=== PATIENT | female | born 1960 | race Caucasian/White ===

== ENCOUNTER → 2016-03-10 | Outpatient (CLI) | payer BC ==
[~2016-03-10] MED LIST: ESTR0.5T3 PO; MULT-506 PO; NITR-5 PO; PRLSR20 PO; TRIA37.5 PO
[2016-03-11 12:38] LABS: URINE APPEARANCE CLEAR (CLEAR); URINE BILIRUBIN NEG (NEG); URINE COLOR YELLOW; URINE NITRITE NEG (NEG); URINE SPECIFIC GRAVITY 1.005 (1.000-1.030); UROBILINOGEN NEG (NEG)
[2016-03-11 12:53] LABS: MANUAL MICROSCOPIC REQUIRED? NO; REVIEW REQ? NO
== END | disposition home or self-care (01) ==
LOC: C.PAPS 10:58 → C.LABSPEC 11:28
PROVIDERS: ATTEND Internal Medicine Pulmonary Disease
DX: R39.9 Unspecified symptoms and signs involving the genitourinary system (principal)

== ENCOUNTER → 2016-05-27 | Outpatient (CLI) | payer BC ==
[2016-05-27 12:29] LABS: BLOOD UREA NITROGEN 17 mg/dl (7-18); BUN/CREATININE RATIO 21.9 (10-20); CALCIUM 9.2 mg/dl (8.5-10.1); CARBON DIOXIDE 30 mmol/L (21-32); CHLORIDE 106 mmol/L (98-107); CREATININE 0.79 mg/dl (0.60-1.20); GLUCOSE 82 mg/dl (70-99); POTASSIUM 3.8 mmol/L (3.5-5.1); SODIUM 141 mmol/L (136-145)
[2016-05-27 12:32] LABS: CHOLESTEROL 220 mg/dl (0-200); CHOLESTEROL/HDL RATIO 2.2; HDL CHOLESTEROL 98 mg/dl; LDL CHOLESTEROL CALCULATED 107 mg/dl; TRIGLYCERIDES 75 mg/dl (0-150); VERY LOW DENSITY LIPOPROT CALC 15 mg/dl
== END | disposition home or self-care (01) ==
LOC: C.LABPBG 08:22
PROVIDERS: ATTEND Family Medicine
DX: Z00.00 Encounter for general adult medical examination without abnormal findings (principal); Z11.59 Encounter for screening for other viral diseases; I10 Essential (primary) hypertension; Z13.220 Encounter for screening for lipoid disorders

== ENCOUNTER → 2016-07-27 | Day surgery (SDC) | payer BC ==
[2016-07-13 11:46] VITALS: Ht 161.3 cm; Wt 65.9 kg
[~2016-07-27] VITALS: Ht 161.3 cm; Wt 65.9 kg
[~2016-07-27] MED LIST changes: +MIDAZOLAM HCL 1 MG/ML 2ML VIAL ONE; -NITR-5 PO; +PROPOFOL IV EMULSION 10 MG/ML 20 ML VIAL IV ONE; +SODIUM CHLORIDE 0.9% 500ML 500 ML IV ONE
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
--- NOTE | 2016-07-27 11:48 | GI REPORT ---
Procedure Date: 07/27/2016 11:04 AM Procedure: Colonoscopy Indications: Screening for colorectal malignant neoplasm Medicines: Monitored Anesthesia Care Complications: No immediate complications. Estimated Blood Loss: Estimated blood loss: none. Procedure: Pre-Anesthesia Assessment: - Prior to the procedure, a History and Physical was performed, and patient medications and allergies were reviewed. The patient's tolerance of previous anesthesia was also reviewed. The risks and benefits of the procedure and the sedation options and risks were discussed with the patient. All questions were answered, and informed consent was obtained. Prior Anticoagulants: The patient has taken no previous anticoagulant or antiplatelet agents. ASA Grade Assessment: II - A patient with mild systemic disease. After reviewing the risks and benefits, the patient was deemed in satisfactory condition to undergo the procedure. After I obtained informed consent, the scope was passed under direct vision. Throughout the procedure, the patient's blood pressure, pulse, and oxygen saturations were monitored continuously. The scope was introduced through the anus and advanced to the terminal ileum. The colonoscopy was performed without difficulty. The patient tolerated the procedure well. The quality of the bowel preparation was good. The terminal ileum, ileocecal valve, appendiceal orifice, and rectum were photographed. Findings: A 5 mm polyp was found in the transverse colon. The polyp was sessile. The polyp was removed with a hot snare. Resection and retrieval were complete. Non-bleeding internal hemorrhoids were found during retroflexion. The hemorrhoids were small. Impression: - One 5 mm polyp in the transverse colon, removed with a hot snare. Resected and retrieved. - Non-bleeding internal hemorrhoids. Recommendation: - Resume previous diet. - Continue present medications. - Repeat colonoscopy for surveillance based on pathology results. - Return to primary care physician as previously scheduled. Matthew Rodriguez DO 07/27/2016 11:48:38 AM This report has been signed electronically. Note Initiated On: 07/27/2016 11:04 AM I attest to the content of the Intraoperative Record and orders documented therein, exceptions below
--- NOTE | 2016-07-27 11:52 | Discharge Instructions ---
Endoscopy Patient Instructions Date / Procedure(s) Performed Jul 27, 2016. Colonoscopy Allergy Information Coded Allergies: No Known Allergies (Verified , 07/13/16) Discharge Date / Findings Jul 27, 2016. Colon polyp Internal hemorrhoids Medication Instructions OK to resume all medications today as prescribed Medications Dose Route/Sig Max Daily Dose Days Date Category Multivitamin (Multivitamins) Tab 1 Tab PO QAM 07/13/16 Reported Dyazide 37.5MG/25MG (Triamterene/HCTZ) Cap 1 Tab PO QAM 07/13/16 Reported Prilosec (Omeprazole) 20 Mg Capcr 40 Mg PO QAM 07/13/16 Reported Estradiol 0.5 Mg Tab 1 Tab PO QAM 07/13/16 Reported Provider Instructions Activity Restrictions - No exercising or heavy lifting for 24 hours. - Do not drink alcohol the day of the procedure. - Do not drive a car or operate machinery until the day after the procedure. - Do not make any important decisions or sign important papers in 24 hours after the procedure. Following Day: - Return to full activity which may include returning to work/school. Diet Start your diet with liquids and light foods (jello, soup, juice, toast). Then eat your usual diet if not nauseated. Treatment For Common After Affects For mild abdominal pain, bloating, or excessive gas: - Rest - Eat lightly - Lie on right side Follow-Up Information Follow-up with Pili Andrews as scheduled Anesthesia Information What You Should Know You have had a procedure that required some medicine to reduce anxiety and discomfort. This treatment is called moderate sedation. After receiving the treatment, you may be sleepy, but you will be able to breathe on your own. The effects of the treatment may last for several hours. Follow these instructions along with Activity/Diet recommendations noted above: * Do NOT do anything where dizziness or clumsiness would be dangerous. * Rest quietly at home today, then you can be up and about tomorrow. * Have a responsible person stay with you the rest of today. * You may have had an I.V. today. If so, you may take the dressing off later today. Recommendations Call your doctor if: * Trouble breathing * Continuous vomiting for more than 24 hours * Temperature above 101 degrees * Severe abdominal pain or bloating * Pain not relieved by pain medicine ordered * There is increased drainage or redness from any incision * A large amount of rectal bleeding greater than 2-3 tablespoons. (If you had a polyp/s removed or have hemorrhoids, a small amount of blood - from the rectum is to be expected.) * You have any unanswered questions or concerns. IN THE EVENT OF A SERIOUS EMERGENCY, GO TO THE NEAREST EMERGENCY ROOM Your discharge instructions were prepared by provider Matthew Rodriguez. Patient Instructions Signature Page Serenity Levi Patient (or Guardian) Signature/Date: I have read and understand the instructions given to me by my caregivers. Caregiver/RN/Doctor Signature/Date: The above-named patient and/or guardian has received patient instructions on this date. + Original Patient Signature Page (only) stays with chart. Please make copy for patient.
[2016-07-27 12:17] VITALS: BP 113/85; PULSE 66; O2SAT 98
--- NOTE | 2016-07-27 12:31 | Anesthesiology Progress Note ---
Anesthesia Post Op Note Date & Time Jul 27, 2016 at 12:31 Vital Signs Pain Intensity: 0 Vital Signs Past 12 Hours Date Time Temp Pulse Resp B/P (MAP) Pulse Ox O2 Delivery O2 Flow Rate FiO2 07/27/16 12:17 66 20 113/85 98 Room Air 07/27/16 11:56 80 20 112/78 96 Room Air 07/27/16 11:41 80 16 102/78 96 Room Air 07/27/16 10:33 36.6 65 16 132/89 97 Room Air Notes Mental Status: alert / awake / arousable, participated in evaluation Pt Amnestic to Procedure: Yes Nausea / Vomiting: adequately controlled Pain: adequately controlled Airway Patency, RR, SpO2: stable & adequate BP & HR: stable & adequate Hydration State: stable & adequate Anesthetic Complications: no major complications apparent
== END | disposition home or self-care (01) ==
LOC: C.GI 10:10
PROVIDERS: ATTEND Internal Medicine
DX: Z12.11 Encounter for screening for malignant neoplasm of colon (principal); D12.3 Benign neoplasm of transverse colon; K64.8 Other hemorrhoids; I10 Essential (primary) hypertension; Z90.711 Acquired absence of uterus with remaining cervical stump; Z98.890 Other specified postprocedural states; Z68.25 Body mass index [BMI] 25.0-25.9, adult

== ENCOUNTER → 2017-02-11 | Outpatient (CLI) | payer BC ==
[~2017-02-11] MED LIST changes: -MIDAZOLAM HCL 1 MG/ML 2ML VIAL ONE; -PROPOFOL IV EMULSION 10 MG/ML 20 ML VIAL IV ONE; -SODIUM CHLORIDE 0.9% 500ML 500 ML IV ONE
--- NOTE | 2017-02-15 15:28 | MAMMOGRAPHY REPORT ---
BILATERAL DIGITAL SCREENING MAMMOGRAM TOMOSYNTHESIS WITH CAD: 02/11/2017 CLINICAL HISTORY: Routine screening. Patient has no complaints. TECHNIQUE: Breast tomosynthesis in addition to standard 2D mammography was performed. Current study was also evaluated with a Computer Aided Detection (CAD) system. COMPARISON: Comparison is made to exams dated: 02/11/2016 mammogram, 08/09/2014 mammogram, 07/30/2014 m ammogram - [facility] BREAST COMPOSITION: The tissue of both breasts is heterogeneously dense, which may obscure small mas ses. FINDINGS: No suspicious masses, calcifications, or areas of architectural distortion are noted in ei ther breast. There has been no significant interval change compared to prior exams. IMPRESSION: ACR BI-RADS CATEGORY 1: NEGATIVE There is no mammographic evidence of malignancy. A 1 year screening mammogram is recommended. The pa tient will receive written notification of the results. Approximately 10% of breast cancers are not detected with mammography. A negative mammographic report should not delay biopsy if a clinically suggestive mass is present. Radha Verde M.D. ah/:02/11/2017 16:33:12 Ward Service Supervisor: Dulce Mckeon RT(R)(M)(BD), [facility] letter sent: Normal 1/2 BI-RADS Code: ACR BI-RADS Category 1: Negative
== END | disposition home or self-care (01) ==
LOC: C.MAMM 10:19
PROVIDERS: ATTEND Family Medicine
DX: Z12.31 Encounter for screening mammogram for malignant neoplasm of breast (principal)

== ENCOUNTER 2021-11-21 22:32 | Observation (INO) ==
[2021-11-21] MEDS ORDERED: ONDANSETRON INJ 2 MG/ML 2 ML VIAL IV STA (22:53)
[2021-11-21] MEDS ORDERED: KETOROLAC TROMETHAMINE 15 MG/ML VIAL IV ONE (22:53)
[2021-11-21] MEDS ORDERED: SODIUM CHLORIDE 0.9% 1000ML 1,000 ML IV SCH (22:53)
--- NOTE | 2021-11-21 23:08 | Emergency Department Note ---
Impression & Plan Acute cholecystitis, Cholelithiasis, Abdominal pain, RUQ ED Provider Note CHIEF COMPLAINT: RUQ abdominal pain HISTORY OF PRESENT ILLNESS: Serenity Warner is a 61 year old female with history of HTN and GERD who presents to the Emergency Department for evaluation of aching pains to her right upper abdominal quadrant radiating around to her right flank which have been persistent over the past 2 days. Initially, the patient states that her pain first began after she had eaten wings. Since then, her pain has persisted. Currently, she rates her discomfort as a 8/10 which worsens when laying down. She has taken ibuprofen and muscle relaxants without improvement of her symptoms. She does state that her pain seems to improve a bit when she is standing up. The patient states that she had similar pains about a month ago but they resolved on their own and she was feeling well until they returned 2 days ago. She has felt nauseous but no vomiting. No diarrhea, hematochezia or melena. No dysuria or hematuria. She does state that she has felt chilled but no fevers. The patient otherwise denies chest pain or respiratory difficulties. No other acute complaints. The patient has had a hysterectomy, no other abdominal surgeries. REVIEW OF SYSTEMS: 10 systems were reviewed and were negative unless otherwise stated in HPI as above PHYSICAL EXAM: VITALS: Vitals are noted on the nurse's note and reviewed by myself. Initially hypertensive and tachycardic. Additional vital signs stable. General: Resting in bed, no acute distress HEENT: Normocephalic, PERRL, EOMI, mucous membranes moist, oropharynx clear Neck: Supple, no lymphadenopathy, non-tender, ROM intact without pain Resp: Good inspiratory effort on room air, lung sounds clear bilaterally CV: Mildly tachycardic rate, regular rhythm, normal S1-S2, peripheral pulses palpated Back: Mild tenderness to palpation and percussion over the right flank, left flank non-tender Abd: Soft, non-distended, tender to palpation over the right upper quadrant and epigastric region, no rebound, guarding or rigidity MSK: Moving all extremities without apparent pain or difficulty Integumentary: Warm, dry, no appreciable rash Neuro: Awake, alert and oriented x 3, interacting and answering questions appropriately Differential diagnosis includes etiologies such as appendicitis, diverticulitis, obstruction, inflammatory bowel disease, renal colic, PUD, biliary pathology, pancreatitis, mesenteric ischemia, aortic pathology, infections, genitourinary, UTI, perforated viscus, as well as others were entertained. EMERGENCY DEPARTMENT COURSE: Physical exam and history were performed. Nursing triage notes, EMR, and medication list were personally reviewed. Patient appears to have aching pains to her right upper abdominal quadrant radiating around to her right flank which have been persistent over the past 2 days. Additional history as described above. See physical exam as noted above. The patient was offered pain medication. IV access was established and she was given Toradol 15 mg x 2, Zofran 4 mg and 1 L NSS throughout her emergency department course. Labs were obtained, reviewed by myself as below. Of note, no concern for leukocytosis with a WBC of 8.33. No concern for anemia with hemoglobin 13.5. Electrolytes WNL. Renal indices stable. LFTs WNL. Lipase WNL. High- sensitivity troponin I not elevated at 4.0. Coagulation studies WNL. Urinalysis not concerning for infection or other concerning findings. CAT scan of the abdomen/pelvis was obtained, reviewed by radiologist and myself as below. Imaging did show cholelithiasis with evidence of acute cholecystitis. Upon reevaluation, the patient was doing well and stated that she felt improved after receiving the medication as above. I did discuss the results of the above findings with her at bedside. I then contacted Manfred Snyder PA-C of general surgery. He agreed to evaluate the patient with Dr. Mtz for ongoing management. Please see his dictation for additional plan and disposition thereafter. The patient verbalized her understanding and agreement with the treatment plan as above. The chart was completed utilizing [employer] Speech Voice Recognition Software. Grammatical errors, random word insertions, pronoun errors, and incomplete sentences are an occasional consequence of this system due to software limitations, ambient noise, and hardware issues. Any formal questions or concerns about the content, text, or information contained within the body of this dictation should be directly addressed to the provider for clarification. Past Med/Surg History Medical History Cervical radiculopathy Controlled substance agreement broken Diverticulosis Heartburn Hypertension Sciatica of left side Sinus congestion Surgical History H/O: hysterectomy (2004) total hysterectomy with removal of right ovary Family History Brother Diabetes Hypertension History of kidney cancer Grandmother (Maternal) Diabetes Mother Hypertension Father Hypertension Uncle Myocardial infarction Sister Pulmonary fibrosis Daughter No problems noted. Son No problems noted. 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 Feels Safe at Home: Yes Childhood Exposure to Second-Hand Smoke: Yes Dental Care, Regularly: Yes Physical Activity Frequency: Does not Exercise Seatbelt Use: always Sunscreen Use: Yes Allergies Allergies Allergy/AdvReac Type Severity Reaction Status Date / Time No Known Drug Allergies Allergy NKDA Verified 11/22/21 00:32 Home Meds Home Medications Medication Instructions Recorded Confirmed estradiol 0.5 mg tablet 5 mg PO DAILY 11/22/21 11/22/21 ibuprofen 200 mg tablet 600 mg PO Q8 PRN Pain 11/22/21 11/22/21 triamterene 37.5 1 cap PO DAILY 11/22/21 11/22/21 mg-hydrochlorothiazide 25 mg capsule valacyclovir 500 mg tablet 500 mg PO DAILY PRN ... 11/22/21 11/22/21 Previous Rx's Medication Instructions Recorded cyclobenzaprine 10 mg tablet 10 mg PO TID PRN muscle spasm #20 11/16/21 tabs omeprazole 40 mg capsule,delayed 40 mg PO QAM #30 caps 11/18/21 release Results & Data (ED) Vital Signs Vital Signs - 24 hr 11/21/21 22:33 11/22/21 02:08 Temperature 36.7 C Temperature Source Temporal Artery Scan Pulse Rate 104 H Pulse Rate [Left Finger] 64 Pulse Rhythm Regular Pulse Strength Normal Respiratory Rate 18 20 Respiratory Effort / Characteristics Non-Labored Spontaneous Non-Labored Spontaneous Respiratory Depth Normal Normal Blood Pressure 173/101 H Blood Pressure [Left Arm] 151/96 H Blood Pressure Mean 125 Blood Pressure Mean [Left Arm] 114 Blood Pressure Position Sitting Pulse Oximetry 98 Oxygen Delivery Method Room Air Sepsis Recent Fever Within 48 Hours No Sepsis New/Unexplained Change in Mental Status N/A Sepsis Action Taken by Nursing No Action Required Laboratory Data Result diagrams: 11/21/21 22:50 11/21/21 22:50 Lab Results 11/21/21 11/21/21 11/21/21 Range/Units 22:50 22:50 22:50 WBC 8.33 (4.8-10.8) K/ul RBC 3.95 (3.93-5.22) M/uL Hgb 13.5 (12.0-16.0) g/dl Hct 39.8 (34.1-44.9) % MCV 100.8 H (80.0-100.0) fL MCH 34.2 H (25.0-34.0) pg MCHC 33.9 (32.0-36.0) g/dL RDW Std Deviation 49.1 H (36.4-46.3) fL RDW Coeff of [place] 13.1 (11.5-14.5) % Plt Count 322 (130-400) K/uL MPV 9.7 (9.4-12.3) fL Immature Gran % (Auto) 0.1 % Neut % (Auto) 46.5 % Lymph % (Auto) 42.5 % [place] % (Auto) 7.8 % Eos % (Auto) 2.5 % Baso % (Auto) 0.6 % Neut # (Auto) 3.87 (1.4-6.5) K/uL Lymph # (Auto) 3.54 H (1.2-3.4) K/uL [place] # (Auto) 0.65 (0.24-0.82) K/uL Eos # (Auto) 0.21 (0-0.50) K/uL Baso # (Auto) 0.05 (0-0.2) K/uL Immature Gran # (Auto) 0.01 (0.00-0.02) K/uL PT 10.2 (9.0-12.0) Seconds INR 1.0 (0.9-1.1) APTT 24.2 (21.0-31.0) Seconds PTT Ratio 0.9 Sodium 138 (136-145) mmol/L Potassium 3.6 (3.5-5.1) mmol/L Chloride 102 (98-107) mmol/L Carbon Dioxide 28 (21-32) mmol/L Anion Gap 8 (3-11) BUN 13 (6-23) mg/dl Creatinine 0.72 (0.6-1.2) mg/dl Est Cr Clr Drug Dosing 78.6 ml/min Est GFR ( Amer) 105.5 ml/min Est GFR (Non-Af Amer) 91.0 ml/min BUN/Creatinine Ratio 18.1 (10-20) Glucose 94 (70-99(Fasting)) mg/dl Calcium 9.3 (8.5-10.1) mg/dl Total Bilirubin 0.3 (0.2-1.0) mg/dl AST 30 (13-39) U/L ALT 51 (7-52) U/L Alkaline Phosphatase 86 (34-104) U/L Troponin I High Sens 4.0 (0-14) pg/ml Total Protein 6.7 (6.0-8.3) gm/dl Albumin 4.1 (3.4-5.0) gm/dl Globulin 2.6 (2.5-4.0) gm/dl Albumin/Globulin Ratio 1.6 (0.9-2) Lipase 27 (11-82) U/L Urine Color Urine Appearance (Clear) Urine pH (4.5-7.5) Ur Specific [place] (1.000-1.030) Urine Protein (Negative) Urine Glucose (UA) (Negative) Urine Ketones (Negative) Urine Blood (Negative) Urine Nitrite (Negative) Urine Bilirubin (Negative) Urine Urobilinogen (Negative) Ur Leukocyte Esterase (Negative) SARS-CoV-2, RNA, NAAT (NEGATIVE) 11/21/21 11/22/21 Range/Units 22:50 Unknown WBC (4.8-10.8) K/ul RBC (3.93-5.22) M/uL Hgb (12.0-16.0) g/dl Hct (34.1-44.9) % MCV (80.0-100.0) fL MCH (25.0-34.0) pg MCHC (32.0-36.0) g/dL RDW Std Deviation (36.4-46.3) fL RDW Coeff of [place] (11.5-14.5) % Plt Count (130-400) K/uL MPV (9.4-12.3) fL Immature Gran % (Auto) % Neut % (Auto) % Lymph % (Auto) % [place] % (Auto) % Eos % (Auto) % Baso % (Auto) % Neut # (Auto) (1.4-6.5) K/uL Lymph # (Auto) (1.2-3.4) K/uL [place] # (Auto) (0.24-0.82) K/uL Eos # (Auto) (0-0.50) K/uL Baso # (Auto) (0-0.2) K/uL Immature Gran # (Auto) (0.00-0.02) K/uL PT (9.0-12.0) Seconds INR (0.9-1.1) APTT (21.0-31.0) Seconds PTT Ratio Sodium (136-145) mmol/L Potassium (3.5-5.1) mmol/L Chloride (98-107) mmol/L Carbon Dioxide (21-32) mmol/L Anion Gap (3-11) BUN (6-23) mg/dl Creatinine (0.6-1.2) mg/dl Est Cr Clr Drug Dosing ml/min Est GFR ( Amer) ml/min Est GFR (Non-Af Amer) ml/min BUN/Creatinine Ratio (10-20) Glucose (70-99(Fasting)) mg/dl Calcium (8.5-10.1) mg/dl Total Bilirubin (0.2-1.0) mg/dl AST (13-39) U/L ALT (7-52) U/L Alkaline Phosphatase (34-104) U/L Troponin I High Sens (0-14) pg/ml Total Protein (6.0-8.3) gm/dl Albumin (3.4-5.0) gm/dl Globulin (2.5-4.0) gm/dl Albumin/Globulin Ratio (0.9-2) Lipase (11-82) U/L Urine Color Yellow Urine Appearance Clear (Clear) Urine pH 7.0 (4.5-7.5) Ur Specific [place] 1.006 (1.000-1.030) Urine Protein Negative (Negative) Urine Glucose (UA) Negative (Negative) Urine Ketones Negative (Negative) Urine Blood Negative (Negative) Urine Nitrite Negative (Negative) Urine Bilirubin Negative (Negative) Urine Urobilinogen Negative (Negative) Ur Leukocyte Esterase Negative (Negative) SARS-CoV-2, RNA, NAAT NEGATIVE (NEGATIVE) Administered Medications Lactated Ringer's (Lr) 1,000 mls @ 100 mls/hr IV .Q10H MIGUE Stop: 12/22/21 00:59 Last Admin: 11/22/21 01:22 Dose: 100 mls/hr Documented By: ALKA Discontinued Medications Sodium Chloride (Nss 1000ml) 1,000 mls @ 999 mls/hr IV .Q1H1M MIGUE Stop: 11/21/21 23:53 Last Infusion: 11/21/21 23:53 Dose: 0 mls/hr Documented By: Admin: 11/21/21 22:58 Dose: 999 mls/hr Documented By: ALKA Cefoxitin Sodium (Mefoxin) 2,000 mg in 60 mls @ 100 mls/hr IV NOW STA Stop: 11/22/21 01:27 Last Infusion: 11/22/21 02:08 Dose: 0 mls/hr Documented By: Admin: 11/22/21 01:22 Dose: 100 mls/hr Documented By: ALKA Ioversol (Ioversol 350 Mg 100ml Prefilled Syringe) 94 ml IV ONCE ONE Stop: 11/22/21 00:08 Last Admin: 11/22/21 00:08 Dose: 94 ml Documented By: JOHN Ketorolac Tromethamine (Ketorolac Tromethamine 15 Mg/Ml Vial) 15 mg IV NOW ONE Stop: 11/21/21 22:54 Last Admin: 11/21/21 22:59 Dose: 15 mg Documented By: ALKA Ketorolac Tromethamine (Ketorolac Tromethamine 15 Mg/Ml Vial) 15 mg IV NOW ONE Stop: 11/22/21 00:35 Last Admin: 11/22/21 00:50 Dose: 15 mg Documented By: ALKA Ondansetron HCl (Ondansetron Inj 2 Mg/Ml 2 Ml Vial) 4 mg IV NOW STA Stop: 11/21/21 22:54 Last Admin: 11/21/21 22:59 Dose: 4 mg Documented By: ALKA Imaging Data Radiologist's Impression: Abdomen/Pelvis CT 11/21/21 22:54 CT SCAN OF THE ABDOMEN AND PELVIS WITH IV CONTRAST CLINICAL HISTORY: Right upper quadrant abdominal pain. COMPARISON STUDY: Abdominal CT dated 12/14/2007. TECHNIQUE: Following the IV administration of 94 cc of Optiray 350, CT scan of the abdomen and pelvis is performed from the lung bases to the proximal femora. Images are reviewed in the axial, sagittal, and coronal planes. IV contrast was administered without complication. A dose lowering technique was utilized adhering to the principles of ALARA. CT DOSE: 398.92 mGy.cm FINDINGS: Lung bases: The heart is normal in size and without pericardial effusion. The l mayuri bases are clear noting dependent atelectasis. Liver: The contrast-enhanced liver is normal in size, contour, and attenuation. There is no intrahepatic biliary ductal dilatation. The hepatic veins and portal veins are patent. A 1.7 cm right lobe hypodensity on image #95 is incompletely characterized and likely represents a hemangioma. This is unchanged dating back to 2007. Gallbladder: Gallbladder is distended and there are large gallstones. Gallstones are seen in the region of the gallbladder neck on image #134. The gallbladder wall is mildly thickened there is mild pericholecystic infiltration. Spleen: Normal in size and attenuation. Pancreas: Unremarkable. Adrenal glands: Unremarkable. Kidneys: The contrast enhanced kidneys are normal in size and without hydronephrosis. The kidneys enhance symmetrically. Renal sinus cysts are noted on the left. Abdominal vasculature: The abdominal aorta is normal in course and caliber. Bowel: There is no bowel obstruction. [id number] fecal retention is seen throughout the colon. The appendix is well-visualized and normal. Peritoneum: There is no intraperitoneal free air or abdominal ascites. There is a fat-containing umbilical hernia. Lymphadenopathy: None. Pelvic viscera: The bladder is normal as visualized. The uterus is surgically absent. Simple cystic foci in the left ovary measuring up to 1.7 cm have been present dating back to 2007 and are of low suspicion. Skeletal structures: There is mild lumbosacral spondylosis. Sclerotic changes noted in the sacroiliac joints. No lytic or blastic lesions are seen. IMPRESSION: 1. Cholelithiasis with evidence of acute cholecystitis. 2. Additional findings as above. ACT 112: Negative or not required by law. Electronically signed by: Gonzales Nunes M.D. 11/22/2021 12:22 AM Discharge Plan Visit Data Chief Complaint: Abdominal Pain Stated Complaint: R SIDE ABD AND BACK PAIN ED Provider: Leobardo Cardoso ED Midlevel Provider: Myranda Mora Discharge Problem: Acute cholecystitis, Cholelithiasis, Abdominal pain, RUQ Patient Disposition: Admitted As Inpatient Discharge Instructions Interventions: ED Discharge Assessment Last Done: 11/22/21 02:16 Forms Stand Alone Forms: [facility] [employer] Prescriptions Prescriptions: No Action cyclobenzaprine 10 mg tablet 10 mg PO TID PRN (Reason: muscle spasm) Qty: 20 0RF omeprazole 40 mg capsule,delayed release(DR/EC) 40 mg PO QAM Qty: 30 5RF ibuprofen 200 mg Tablet 600 mg PO Q8 PRN (Reason: Pain) valacyclovir 500 mg tablet 500 mg PO DAILY PRN (Reason: ...) triamterene-hydrochlorothiazid 37.5-25 mg capsule 1 cap PO DAILY Rx Instructions: TAKE ONE CAPSULE BY MOUTH EVERY DAY estradiol 0.5 mg tablet 5 mg PO DAILY Rx Instructions: TAKE ONE TABLET BY MOUTH EVERY DAY Referrals Referrals: Pili Andrews MD [Primary Care Provider] -
[2021-11-21 23:12] LABS: Basophils # (auto) 0.05 K/uL (0-0.2); Basophils % (auto) 0.6 %; Eosinophils # (auto) 0.21 K/uL (0-0.50); Eosinophils % (auto) 2.5 %; Hematocrit (blood only) 39.8 % (34.1-44.9); Hemoglobin 13.5 g/dl (12.0-16.0); Immature Granulocytes # (auto) 0.01 K/uL (0.00-0.02); Immature Granulocytes % (auto) 0.1 %; Lymphocytes # (auto) 3.54 K/uL (1.2-3.4); Lymphocytes % (auto) 42.5 %; Mean Corpuscular Hemoglobin 34.2 pg (25.0-34.0); Mean Corpuscular Hgb Conc 33.9 g/dL (32.0-36.0); Mean Corpuscular Volume 100.8 fL (80.0-100.0); Mean Platelet Volume 9.7 fL (9.4-12.3); Monocytes # (auto) 0.65 K/uL (0.24-0.82); Monocytes % (auto) 7.8 %; Neutrophils # (auto) 3.87 K/uL (1.4-6.5); Neutrophils % (auto) 46.5 %; Platelet Count 322 K/uL (130-400); RDW Coefficient of Variation 13.1 % (11.5-14.5); RDW Standard Deviation 49.1 fL (36.4-46.3); Red Blood Count 3.95 M/uL (3.93-5.22); White Blood Count 8.33 K/ul (4.8-10.8)
[2021-11-21 23:20] LABS: Appearance Urine Clear (Clear); Bilirubin Urine Negative (Negative); Blood Urine Negative (Negative); Color Urine Yellow; Glucose Urine UA Negative (Negative); Ketones Urine Negative (Negative); Leukocyte Esterase Urine Negative (Negative); Nitrite Urine Negative (Negative); Protein Urine Negative (Negative); Specific Gravity Urine 1.006 (1.000-1.030); Urobilinogen Urine Negative (Negative)
[2021-11-21 23:26] LABS: Partial Thromboplastin Ratio 0.9; Partial Thromboplastin Time 24.2 Seconds (21.0-31.0); Prothrombin Time 10.2 Seconds (9.0-12.0)
[2021-11-21 23:45] LABS: Albumin Globulin Ratio 1.6 (0.9-2); Albumin Level 4.1 gm/dl (3.4-5.0); BUN Creatinine Ratio 18.1 (10-20); Bilirubin,Total 0.3 mg/dl (0.2-1.0); Calcium 9.3 mg/dl (8.5-10.1); Creatinine Clr Calc Pharmacy 78.6 ml/min; Est GFR (African American) 105.5 ml/min; Globulin 2.6 gm/dl (2.5-4.0); Potassium 3.6 mmol/L (3.5-5.1); Total Protein 6.7 gm/dl (6.0-8.3)
[2021-11-22] MEDS ORDERED: IOVERSOL 350 MG 100mL Prefilled Syringe IV ONE (00:07)
--- NOTE | 2021-11-22 00:24 | CT Scan Report ---
CT SCAN OF THE ABDOMEN AND PELVIS WITH IV CONTRAST CLINICAL HISTORY: Right upper quadrant abdominal pain. COMPARISON STUDY: Abdominal CT dated 12/14/2007. TECHNIQUE: Following the IV administration of 94 cc of Optiray 350, CT scan of the abdomen and pelvi s is performed from the lung bases to the proximal femora. Images are reviewed in the axial, sagittal , and coronal planes. IV contrast was administered without complication. A dose lowering technique wa s utilized adhering to the principles of ALARA. CT DOSE: 398.92 mGy.cm FINDINGS: Lung bases: The heart is normal in size and without pericardial effusion. The lung bases are clear no ting dependent atelectasis. Liver: The contrast-enhanced liver is normal in size, contour, and attenuation. There is no intrahepa tic biliary ductal dilatation. The hepatic veins and portal veins are patent. A 1.7 cm right lobe hyp odensity on image #95 is incompletely characterized and likely represents a hemangioma. This is uncha nged dating back to 2007. Gallbladder: Gallbladder is distended and there are large gallstones. Gallstones are seen in the nyla on of the gallbladder neck on image #134. The gallbladder wall is mildly thickened there is mild teresa cholecystic infiltration. Spleen: Normal in size and attenuation. Pancreas: Unremarkable. Adrenal glands: Unremarkable. Kidneys: The contrast enhanced kidneys are normal in size and without hydronephrosis. The kidneys enh ance symmetrically. Renal sinus cysts are noted on the left. Abdominal vasculature: The abdominal aorta is normal in course and caliber. Bowel: There is no bowel obstruction. [id number] fecal retention is seen throughout the colon. The appendix is well-visualized and normal. Peritoneum: There is no intraperitoneal free air or abdominal ascites. There is a fat-containing umbi lical hernia. Lymphadenopathy: None. Pelvic viscera: The bladder is normal as visualized. The uterus is surgically absent. Simple cystic f oci in the left ovary measuring up to 1.7 cm have been present dating back to 2007 and are of low angela picion. Skeletal structures: There is mild lumbosacral spondylosis. Sclerotic changes noted in the sacroiliac joints. No lytic or blastic lesions are seen. IMPRESSION: 1. Cholelithiasis with evidence of acute cholecystitis. 2. Additional findings as above. ACT 112: Negative or not required by law. Electronically signed by: Gonzales Nunes M.D. 11/22/2021 12:22 AM
[2021-11-22] MEDS ORDERED: KETOROLAC TROMETHAMINE 15 MG/ML VIAL IV ONE (00:34)
--- NOTE | 2021-11-22 00:48 | History & Physical Report ---
Date of Service November 22, 2021 Assessment & Plan (1) Cholecystitis: Plan: Due to the patient's clinical presentation, and imaging we will proceed in the following manner: Admit the patient to the hospital Provide analgesics provide antiemetics We will obtain an ultrasound of the gallbladder to further delineate her biliary anatomy Follow serial labs Implement n.p.o. status Provide IV fluid for hydration Initiate antibiotics in the form of cefoxitin We have tentatively added the patient to Dr. Mtz surgical schedule for Tuesday morning 12-12 for a cholecystectomy We will check a COVID test Additional recommendations be forthcoming based on operative findings and her postoperative recovery Will use SCDs only for DVT prevention, no chemical means due to planned surgery new The patient will be a full code, level 1 History of Present Illness Chief Complaint: Abdominal pain Primary Care Provider: Pili Andrews MD This is a 61-year-old female who presents to [facility] emergency department secondary to abdominal pain. Patient notes that she has been having on and off abdominal pain located in the right upper quadrant she says for at least 1 month. She notes that the pain usually self resolves but typically is related to eating. She notes that she did have an episode of this 2 days ago that was somewhat worse than usual but this self resolved. She notes that she had this pain again today and the pain was very severe. She denies any fevers, shakes, or chills. She did report nausea without vomiting. She notes that as the pain usually remits on its own she did not seek medical attention for this problem prior to this evening. Concerning her pain she notes that it is nonradiating. She notes that the pain is usually worse after eating but denies any other palliative or provocative factors. She does note that she has had abdominal surgery in the form of a hysterectomy before. In the emergency department the patient had labs and imaging which I independently reviewed. She did have a CT scan of the abdomen and pelvis that showed cholelithiasis with evidence of acute cholecystitis as the gallbladder appeared distended. It is nowhere the mention that one of the gallstones it was located in the region of the gallbladder neck. Mild amount of pericholecystic fluid was noted as well. Labs include a CBC were white blood cell count was normal. Her hemoglobin and hematocrit, along with her platelet count were also normal. Coagulation studies were noted to be normal. Chemistry profile showed sodium, potassium, BUN, and creatinine were normal. Her LFTs including her total bilirubin, AST, ALT, alkaline phosphatase, and lipase were nonelevated. Urinalysis was not indicative of infection. A EKG showed normal sinus rhythm without changes indicative of ischemia. A chest x-ray was performed that showed no evidence of pleural effusion or pneumonia. The patient notes that she leads a fairly active lifestyle when she is feeling well. She feels as though she could easily walk a mile on a flat surface without chest pain or shortness of breath and she can also go up a flight of steps without any chest pain. She notes that she is a lifetime non-smoker and does not have a known family history of coronary artery disease. She does report that she is treated for hypertension as well as GERD but denies any additional medical problems. In the emergency department the patient was treated with some intravenous fluids along with Zofran and Toradol and her pain had improved but she continues to have some pain in the right upper quadrant. At the time of my interview she was resting in bed in no distress. Allergies Allergy/AdvReac Type Severity Reaction Status Date / Time No Known Drug Allergies Allergy NKDA Verified 11/22/21 00:32 Home Medications Medication Instructions Recorded Confirmed Type cyclobenzaprine 10 mg tablet 10 mg PO TID PRN muscle spasm #20 11/16/21 11/22/21 Rx tabs omeprazole 40 mg capsule,delayed 40 mg PO QAM #30 caps 11/18/21 11/22/21 Rx release acetaminophen 325 mg capsule 650 mg PO Q6H PRN fever or pain 11/22/21 Rx #30 caps estradiol 0.5 mg tablet 5 mg PO DAILY 11/22/21 11/22/21 History ibuprofen 200 mg capsule 400 mg PO Q8H PRN pain #30 caps 11/22/21 Rx ibuprofen 200 mg tablet 600 mg PO Q8 PRN Pain 11/22/21 11/22/21 History oxycodone 5 mg tablet 5 mg PO Q6H PRN pain #10 tabs 11/22/21 Rx triamterene 37.5 1 cap PO DAILY 11/22/21 11/22/21 History mg-hydrochlorothiazide 25 mg capsule valacyclovir 500 mg tablet 500 mg PO DAILY PRN ... 11/22/21 11/22/21 History Past Med/Surg History Medical History Cervical radiculopathy Controlled substance agreement broken Diverticulosis Heartburn Hypertension Sciatica of left side Sinus congestion Surgical History H/O: hysterectomy (2004) total hysterectomy with removal of right ovary Family History Brother Diabetes Hypertension History of kidney cancer Grandmother (Maternal) Diabetes Mother Hypertension Father Hypertension Uncle Myocardial infarction Sister Pulmonary fibrosis Daughter No problems noted. Son No problems noted. Denies family history of Colon cancer Ovarian cancer Prostate cancer Breast cancer Social History Smoking Status: Never smoker Second Hand Exposure: No; Hx Alcohol Use: Yes Alcohol type: wine Alcohol Intake Frequency: Monthly or Less Hx Substance Use: No Preferred Language: Northern Irish Communication Ability: Effective Visual Impairment: No Limitations Hearing Ability: Normal Parallel Computing Software Engineer Required: No Beliefs That Will Affect Care: None Current Living Situation: Significant Other Current Living Situation Comment: lives with kimberley in apt current occupational status: employed 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 [employer] Other Information That Helps Us Care for You: No Feels Safe at Home: Yes Safety Concerns: Feels Safe At This Time Childhood Exposure to Second-Hand Smoke: Yes Dental Care, Regularly: Yes Physical Activity Frequency: Does not Exercise Seatbelt Use: always Sunscreen Use: Yes Assistive Devices: None Review of Systems Constitutional: no fever and no chills Eyes: no eye pain Ear, Nose, Mouth, Throat: no ear pain Respiratory: no cough and no dyspnea Cardiovascular: no chest pain Gastrointestinal: as per Subjective / HPI, + abdominal pain and + nausea; no vomiting Genitourinary: no dysuria Musculoskeletal: no back pain Integumentary: no rash Neurologic: no localized weakness Physical Exam Constitutional: WD/WN, vitals as above Eyes: + anicteric sclerae ENMT: Ears: no hearing impairment and no external ear abnormality Mouth: no oropharynx abnormality Neck: trachea midline Respiratory: normal respiratory effort; no respiratory distress and no labored breathing Cardiovascular: Rate/Rhythm: regular rate and regular rhythm Vessels: dorsalis pedis pulses present Gastrointestinal (Abdomen): Abdomen is soft, nonrigid, and nondistended. Patient did have tenderness with palpation in the right upper quadrant with a positive Coffey sign. Musculoskeletal: No calf tenderness Skin: no rashes Neurologic: moves all extremities Psychiatric: A+Ox3, euthymic affect Results & Data Results & Data ([facility]) Vital Signs (Past 12 Hours) Vital Signs Temp Pulse Resp BP Pulse Ox O2 Del Method 11/21/21 22:33 36.7 C 104 H 18 173/101 H 98 Room Air Supervising Physician Co-Signing Physician Notes Patient seen and examined, labs and imaging reviewed, agree with above. 61-year-old female presented with right upper quadrant abdominal pain. History of some postprandial indigestion and discomfort in the past. On exam she is afebrile stable vitals. Tender to palpation in the right upper quadrant. CT personally reviewed and interpreted by myself and agree with the assessment of findings of cholelithiasis with acute cholecystitis. Ultrasound showed no biliary ductal dilatation. WBC mildly elevated, LFTs normal. 61year old female with cholelithiasis and acute cholecystitis plan for laparoscopic cholecystectomy with possible cholangiogram risks discussed to include but not limited to bleeding, infection, retained stone, bile leak, open surgery, damage to surrounding structures including bile duct, need for future or more extensive surgery, failure to treat symptoms, and risks of anesthesia. Potential discharge this afternoon PG Care Time/CCT Total # of Minutes Spent Total Time Spent with Patient: Total time spent is greater than 50% in coordination of care (as documented) at patient's floor/unit and/or counseling patient: Coding Level of Care Code 99582 Initial Inpt Care Lvl 3 Diagnoses Cholecystitis K81.9
[2021-11-22] MEDS ORDERED: cefOXitin 2,000 MG/60 ML BAG IV STA (00:52)
[2021-11-22] MEDS ORDERED: ACETAMINOPHEN 1,000 MG/100 ML VIAL IV PRN (00:52)
[2021-11-22] MEDS ORDERED: ONDANSETRON INJ 2 MG/ML 2 ML VIAL IV PRN ×2 (00:52→11:10)
[2021-11-22] MEDS: LACTATED RINGER'S 1,000 ML IV SCH ×2 (01:22→16:50)
[2021-11-22] MEDS: MoRPHine SULFATE 4 MG/ML 1 ML CARP\\VIAL IV PRN ×2 (03:19→06:21)
[2021-11-22 05:36] LABS: Basophils # (auto) 0.06 K/uL (0-0.2); Basophils % (auto) 0.5 %; Eosinophils # (auto) 0.19 K/uL (0-0.50); Eosinophils % (auto) 1.6 %; Hematocrit (blood only) 37.3 % (34.1-44.9); Hemoglobin 12.6 g/dl (12.0-16.0); Immature Granulocytes # (auto) 0.05 K/uL (0.00-0.02); Immature Granulocytes % (auto) 0.4 %; Lymphocytes # (auto) 1.85 K/uL (1.2-3.4); Lymphocytes % (auto) 15.6 %; Mean Corpuscular Hemoglobin 33.6 pg (25.0-34.0); Mean Corpuscular Hgb Conc 33.8 g/dL (32.0-36.0); Mean Corpuscular Volume 99.5 fL (80.0-100.0); Mean Platelet Volume 9.7 fL (9.4-12.3); Monocytes # (auto) 0.77 K/uL (0.24-0.82); Monocytes % (auto) 6.5 %; Neutrophils # (auto) 8.97 K/uL (1.4-6.5); Neutrophils % (auto) 75.4 %; Platelet Count 288 K/uL (130-400); RDW Standard Deviation 47.8 fL (36.4-46.3); Red Blood Count 3.75 M/uL (3.93-5.22); White Blood Count 11.89 K/ul (4.8-10.8)
[2021-11-22 05:56] LABS: Albumin Globulin Ratio 1.8 (0.9-2); Albumin Level 3.6 gm/dl (3.4-5.0); BUN Creatinine Ratio 19.4 (10-20); Bilirubin,Total 0.3 mg/dl (0.2-1.0); Calcium 8.5 mg/dl (8.5-10.1); Creatinine Clr Calc Pharmacy 84.5 ml/min; Est GFR (African American) 110.7 ml/min; Est GFR (Non-African American) 95.5 ml/min; Potassium 3.5 mmol/L (3.5-5.1); Total Protein 5.6 gm/dl (6.0-8.3)
[2021-11-22] MEDS ORDERED: BUPIVACAINE 0.5 % 5 MG/1 ML MPF 30ML VIAL ONE (07:11)
--- NOTE | 2021-11-22 07:16 | Electrocardiogram Report ---
Test Reason : Blood Pressure : / mmHG Vent. Rate : 065 BPM Atrial Rate : 065 BPM P-R Int : 160 ms QRS Dur : 106 ms QT Int : 418 ms P-R-T Axes : 042 -08 007 degrees QTc Int : 434 ms Normal sinus rhythm Nonspecific T wave abnormality No previous ECGs available Confirmed by Myke Mac ([id number]) on 11/22/2021 7:15:24 AM Referred By: REFERRED SELF Confirmed By:Chandra aMc
--- NOTE | 2021-11-22 08:00 | Anesthesiology Consultation ---
Date of Service November 22, 2021 Assessment & Plan Chart Review Chart Review: Acceptable Risk for Surgery and Patient NOT seen in Pre Admission Testing Consults Requested none ASA ASA2 Proposed Anesthesia Anesthesia Type: General History Surgery Operation Date: 11/22/21 11:00 Proposed Procedures p Laparoscopic Cholecystectomy - Kulwinder Mtz DO, FACS Height/Weight Height: 5 ft 3.5 in Weight: 69.5 kg Allergies Allergy/AdvReac Type Severity Reaction Status Date / Time No Known Drug Allergies Allergy NKDA Verified 11/22/21 00:32 Medications Home Medications Medication Instructions Recorded Confirmed Last Taken cyclobenzaprine 10 mg tablet 10 mg PO TID PRN muscle spasm #20 11/16/21 11/22/21 Unknown tabs omeprazole 40 mg capsule,delayed 40 mg PO QAM #30 caps 11/18/21 11/22/21 Unknown release estradiol 0.5 mg tablet 5 mg PO DAILY 11/22/21 11/22/21 Unknown ibuprofen 200 mg tablet 600 mg PO Q8 PRN Pain 11/22/21 11/22/21 Unknown triamterene 37.5 1 cap PO DAILY 11/22/21 11/22/21 Unknown mg-hydrochlorothiazide 25 mg capsule valacyclovir 500 mg tablet 500 mg PO DAILY PRN ... 11/22/21 11/22/21 Unknown Active Medications Generic Name Dose Route Start Last Admin Trade Name Freq PRN Reason Stop Dose Admin Lactated Ringer's 1,000 mls @ 100 mls/hr 11/22/21 01:00 11/22/21 01:22 Lr IV 12/22/21 00:59 100 mls/hr .Q10H MIGUE Administration Acetaminophen 1,000 mg in 100 mls @ 400 mls/hr 11/22/21 00:52 11/22/21 05:40 Ofirmev IV 11/25/21 00:51 Infused Q8H PRN Infusion Pain Morphine Sulfate 3 mg 11/22/21 00:52 11/22/21 06:21 Morphine Sulfate 4 Mg/Ml 1 Ml Carp\Vial IV 12/06/21 00:51 3 mg Q3H PRN Administration Pain Past Medical History Medical History Cervical radiculopathy Controlled substance agreement broken Diverticulosis Heartburn Hypertension Sciatica of left side Sinus congestion Exercise / Class Metabolic Activity II 4-5 Yardwork/Stairs/Walk up hill Past Family History Family History Brother Diabetes Hypertension History of kidney cancer Grandmother (Maternal) Diabetes Mother Hypertension Father Hypertension Uncle Myocardial infarction Sister Pulmonary fibrosis Daughter No problems noted. Son No problems noted. Denies family history of Colon cancer Ovarian cancer Prostate cancer Breast cancer Past Surgical History Surgical History H/O: hysterectomy (2004) total hysterectomy with removal of right ovary Past Anesthesia History No Hx of Anesthesia Complications and No Family Hx of Anesthesia Complications History of PONV No Hx of PONV and No Hx of Motion Sickness Social History Smoking Status: Never smoker Hx Alcohol Use: Yes Alcohol type: wine alcohol intake frequency: holidays/special occasions only Hx Substance Use: No substance use type: does not use Physical Exam Vital Signs Last Vital Signs Temp 36.8 C 11/22/21 07:42 Pulse 66 11/22/21 07:42 Resp 14 11/22/21 07:42 BP 127/75 11/22/21 07:42 Pulse Ox 95 11/22/21 07:42 O2 Del Method 11/22/21 07:42 Testing Laboratory Results 11/22/21 05:19 11/22/21 05:19 PT 10.2 Seconds (9.0-12.0) 11/21/21 22:50 INR 1.0 (0.9-1.1) 11/21/21 22:50 APTT 24.2 Seconds (21.0-31.0) 11/21/21 22:50 Urine Color Yellow 11/21/21 22:50 Urine Appearance Clear (Clear) 11/21/21 22:50 Urine pH 7.0 (4.5-7.5) 11/21/21 22:50 Ur Specific [place] 1.006 (1.000-1.030) 11/21/21 22:50 Urine Protein Negative (Negative) 11/21/21 22:50 Urine Glucose (UA) Negative (Negative) 11/21/21 22:50 Urine Ketones Negative (Negative) 11/21/21 22:50 Urine Nitrite Negative (Negative) 11/21/21 22:50 Ur Leukocyte Esterase Negative (Negative) 11/21/21 22:50 Electrocardiogram Date: 11/21/21 Findings: + NSR @ (at 65;) and + NSST changes
--- NOTE | 2021-11-22 08:23 | Ultrasound Report ---
US gallbladder HISTORY: 61 years-old Female cholecystitis acute right upper quadrant abdominal pain COMPARISON: CT abdomen and pelvis of same day and also 12/14/2007 TECHNIQUE: Multiple real-time sonographic images of the abdominal right upper and assessing grayscale appearance and color flow FINDINGS: Pancreas is mostly obscured by bowel gas. The liver measures 16.5 cm in length. Echogenic lesion with in the posterior right hepatic lobe measuring 1.6 cm may represent a hemangioma. This lesion is likel y benign and is unchanged from 2008. Distended gallbladder thickening measuring up to 5 mm. A 2 cm stone is present within the gallbladder neck which appears nonmobile. Sonographic Coffey sign was unable to be assessed secondary to recent pain medication given to the patient. Adenomyomatosis of the gallbladder. Suggestion of trace pericho lecystic edema. The imaged right kidney is unremarkable measuring 11 cm in length. Common bile duct m easures 5 mm. IMPRESSION: 1. Cholelithiasis with evidence of acute cholecystitis. 2. No biliary ductal dilation. ACT 112: Negative or not required by law. The above report was generated using voice recognition software. It may contain grammatical, syntax o r spelling errors. Electronically signed by: Grady Colvin M.D. 11/22/2021 8:21 AM
--- NOTE | 2021-11-22 08:23 | XRay Report ---
XR chest 1V portable HISTORY: 61 years-old Female pre-op preoperative exam. No acute chest complaints COMPARISON: CT abdomen and pelvis of same day TECHNIQUE: AP view of the chest FINDINGS: Cardiomediastinal and hilar silhouettes are within normal limits. No pneumothorax, pleural effusion, airspace consolidation or overt pulmonary edema. Bones of the chest appear grossly intact. Mild right hemidiaphragmatic elevation. IMPRESSION: No acute process. ACT 112: Negative or not required by law. The above report was generated using voice recognition software. It may contain grammatical, syntax o r spelling errors. Electronically signed by: Grady Colvin M.D. 11/22/2021 8:22 AM
[2021-11-22] MEDS: cefOXitin 2,000 MG in DEXTROSE 5% 50 ML IV SCH ×2 (08:29→14:26)
[2021-11-22] MEDS ORDERED: PANTOprazole 40 MG TAB PO SCH (09:00)
[2021-11-22] MEDS ORDERED: estradioL 1 MG TAB PO SCH (09:00)
--- NOTE | 2021-11-22 09:00 | Surgery Progress Note ---
Date of Service November 22, 2021 Assessment & Plan (1) Acute calculous cholecystitis: Plan: 61year old female with cholelithiasis with acute cholecystitis plan for laparoscopic cholecystectomy with possible cholangiogram today in the operating room risks discussed to include but not limited to bleeding, infection, retained stone, bile leak, open surgery, damage to surrounding structures including bile duct, need for future or more extensive surgery, failure to treat symptoms, and risks of anesthesia. Potential discharge this afternoon Admission and Anticipated Discharge Date Admission Date: November 22, 2021 Subjective 61-year-old female with acute cholecystitis. Pain controlled. Physical Exam Constitutional: WD/WN, vitals as above Respiratory: normal respiratory effort, lungs clear to auscultation Cardiovascular: RRR, no murmur, no edema Gastrointestinal (Abdomen): Percussion/Palpation: + abdomen tender (Right upper quadrant tenderness to palpation) and abdomen soft; no guarding, abdomen not rigid, no hepatosplenomegaly and no hernia Results & Data ([facility]) Vital Signs (Past 12 Hours) Vital Signs Temp Pulse Pulse Resp BP BP Pulse Ox 11/22/21 07:42 36.8 C 66 14 127/75 95 11/22/21 03:25 36.7 C 64 20 133/80 99 11/22/21 02:08 64 20 151/96 H 11/21/21 22:33 36.7 C 104 H 18 173/101 H 98 O2 Del Method 11/22/21 07:42 Room Air 11/22/21 03:25 Room Air 11/22/21 02:08 11/21/21 22:33 Room Air PG Care Time/CCT Total # of Minutes Spent Total Time Spent with Patient: Total time spent is greater than 50% in coordination of care (as documented) at patient's floor/unit and/or counseling patient: Coding Level of Care Code 24251 Subseq Obs Care Lvl 1 Diagnoses Acute calculous cholecystitis K80.00
[2021-11-22] MEDS ORDERED: fentaNYL citrate 100 MCG/2 ML VIAL ONE ×2 (10:45→11:50)
[2021-11-22] MEDS ORDERED: SUGAMMADEX SODIUM 200 MG/2 ML VIAL IV ONE (10:46)
[2021-11-22] MEDS ORDERED: ePHEDrine sulfate 50 MG/ML AMP IV PRN (11:10)
[2021-11-22] MEDS ORDERED: LABETALOL HCL IV 5 MG/ML 20ML IV PRN (11:10)
[2021-11-22] MEDS ORDERED: FLUMAZENIL 0.1 MG/1 ML 10 ML VIAL IV PRN (11:10)
[2021-11-22] MEDS ORDERED: PROMETHAZINE HCL 12.5 MG in SODIUM CHLORIDE 0.9% 50 ML IV PRN (11:10)
[2021-11-22] MEDS ORDERED: ATROPINE SULFATE 0.1 MG/ML 10ML SYR IV PRN (11:10)
[2021-11-22] MEDS ORDERED: fentaNYL citrate 100 MCG/2 ML VIAL IV PRN (11:10)
[2021-11-22] MEDS ORDERED: NALOXONE HCL 0.4 MG/1 ML VIAL/CARP IV PRN (11:10)
[2021-11-22] MEDS ORDERED: HYDROmorphone INJ 1 MG/ML SYRINGE IV PRN (11:10)
[2021-11-22] MEDS ORDERED: DEXAMETHASONE SOD INJ 4 MG/ML VIAL ONE (11:35)
[2021-11-22] MEDS ORDERED: PROPOFOL IV EMULSION 10 MG/ML 20 ML VIAL IV ONE (11:35)
[2021-11-22] MEDS ORDERED: ROCURONIUM BROMIDE 10 MG/ML 5 ML VIAL IV ONE (11:35)
[2021-11-22] MEDS ORDERED: ONDANSETRON INJ 2 MG/ML 2 ML VIAL ONE (11:35)
--- NOTE | 2021-11-22 12:18 | Operative Report ---
PG Post Operative Report Pre & Post Diagnosis Operation Date: 11/22/21 11:00 Pre-Op Diagnosis: Acute calculous cholecystitis. Post-Op Diagnosis: Acute calculous cholecystitis. I identified the patient and participated in the time-out.: Yes Procedure Operation Date: 11/22/21 11:00 Actual Procedures p Laparoscopic Cholecystectomy - Kulwinder Mtz DO, FACS Surgeon Kulwinder Mtz DO, FACS Channel Opener Outsoles None Estimated Blood Loss 25 Findings Consistent with Post-Op Diagnosis Acute cholecystitis, gallbladder aspirated to allow for retraction. Critical view of safety obtained. Cystic duct and artery doubly clipped and divided. Specimens Gallbladder Anesthesia Type General Complications none Disposition Accompanied Patient To Recovery: No Disposition: Recovery Room Indications 61-year-old female presented to the emergency department with signs and symptoms of acute cholecystitis, plan for laparoscopic cholecystectomy with possible cholangiogram. The risks of the procedure were discussed, all questions were answered, and the patient agreed to proceed with surgery as planned. Description of Procedure The patient was properly identified, consented, and taken to the operating room where she was placed in the supine position. General endotracheal anesthesia was induced. SCDs and a safety belt were placed. Preoperative antibiotics were administered. The patient's abdomen was prepped and draped in the standard sterile fashion. A surgical timeout was performed and all parties were in agreement that this was the correct patient and procedure to be performed and we continued as planned. An incision was made superior and to the left of the umbilicus overlying the rectus muscle and the Veress needle was inserted. Saline drop test confirmed entry into the peritoneum. The abdomen was insufflated with carbon dioxide which the patient tolerated without incident. The abdomen was then entered using the Optiview technique and a 5 mm trocar. The laparoscope was inserted and no damage from initial trocar or Veress needle placement was noted, no gross abnormalities were noted within the 4 quadrants of the abdomen. An 11 mm port was placed in the subxiphoid position and two 5 mm ports were then placed in the right subcostal position. The patient was placed in reverse Trendelenburg position and rotated towards the left. The gallbladder was acutely inflamed and distended. It was aspirated to allow for better retraction. The dome of the gallbladder was retracted towards the left upper quadrant and the infundibulum was retracted toward the right lower quadrant revealing Calot's triangle. Peritoneal attachments were taken down with electrocautery and blunt dissection. The cystic duct and artery were circ umferentially dissected. A window of safety was obtained showing the cystic duct entering the gallbladder with no aberrant structures noted. The cystic duct and artery were doubly clipped and divided. There was a bleeding branch of the cystic artery which was clipped and divided. The gallbladder was then lifted off the gallbladder fossa with electrocautery. The gallbladder was placed in an Endo Catch bag and removed through the subxiphoid port site. The right upper quadrant was irrigated and hemostasis was found to be good. 5 mm trochars were removed under direct visualization and the abdomen was allowed to collapse. The subxiphoid port site fascia was closed with 0 Vicryl suture. The wound was irrigated, and the skin of all ports was closed with 4-0 Monocryl subcuticular sutures. Dermabond was placed over the wounds. The patient was extubated in the operating room and taken to the PACU where she recovered without apparent incident. All sponge, instrument and needle counts w ere correct at the conclusion of the procedure. The patient tolerated the procedure well. I attest to the content of the Intraoperative Record and any orders documented therein. Any exceptions are noted below.
[2021-11-22] MEDS ORDERED: oxyCODONE HCL IR 5 MG TAB (IMMEDIATE RELEASE) PO PRN ×2 (13:04)
[2021-11-22] MEDS ORDERED: MoRPHine SULFATE 2 MG/ML CARP IV PRN (13:04)
[2021-11-22] MEDS ORDERED: MoRPHine SULFATE 4 MG/ML 1 ML CARP\\VIAL IV PRN (13:04)
--- NOTE | 2021-11-22 13:48 | Anesthesiology Progress Note ---
Date of Service November 22, 2021 Anesthesia Post Procedure Vital Signs Vital Signs: Temp Pulse Pulse Pulse Resp BP BP 11/22/21 13:30 36.4 C L 74 16 133/81 11/22/21 13:00 36.7 C 69 18 150/87 H 11/22/21 12:50 36.5 C 65 18 147/81 H 11/22/21 12:40 65 18 148/77 H 11/22/21 12:30 72 17 145/84 H 11/22/21 12:21 36.4 C L 84 18 154/75 H 11/22/21 07:42 36.8 C 66 14 127/75 11/22/21 03:25 36.7 C 64 20 133/80 11/22/21 02:08 64 20 151/96 H 11/21/21 22:33 36.7 C 104 H 18 173/101 H Pulse Ox O2 Del Method O2 Flow Rate 11/22/21 13:30 94 Room Air 11/22/21 13:00 97 Room Air 11/22/21 12:50 96 Room Air 11/22/21 12:40 96 Room Air 11/22/21 12:30 96 Oxymask 5 11/22/21 12:21 96 Oxymask 5 11/22/21 07:42 95 Room Air 11/22/21 03:25 99 Room Air 11/22/21 02:08 11/21/21 22:33 98 Room Air Pain Intensity Right Upper Abdomen: Pain Intensity: 7 Transfer of Care Handoff Completed per policy Notes Mental Status: alert / awake / arousable Patient Amnestic to Procedure: Yes Nausea / Vomiting: adequately controlled Pain: adequately controlled Airway Patency, RR, SpO2: stable & adequate BP & HR: stable & adequate Hydration State: stable & adequate Anesthetic Complications: no major complications apparent
[2021-11-22] MEDS ORDERED: ACETAMINOPHEN 500 MG TAB PO PRN (13:57)
[2021-11-22] MEDS ORDERED: KETOROLAC TROMETHAMINE 15 MG/ML VIAL IV SCH (14:00)
--- NOTE | 2021-11-23 19:18 | Discharge Summary ---
Date of Service November 23, 2021 Admission HPI Per Admitting Provider This is a 61-year-old female who presents to [facility] emergency department secondary to abdominal pain. Patient notes that she has been having on and off abdominal pain located in the right upper quadrant she says for at least 1 month. She notes that the pain usually self resolves but typically is related to eating. She notes that she did have an episode of this 2 days ago that was somewhat worse than usual but this self resolved. She notes that she had this pain again today and the pain was very severe. She denies any fevers, shakes, or chills. She did report nausea without vomiting. She notes that as the pain usually remits on its own she did not seek medical attention for this problem prior to this evening. Concerning her pain she notes that it is nonradiating. She notes that the pain is usually worse after eating but denies any other palliative or provocative factors. She does note that she has had abdominal surgery in the form of a hysterectomy before. In the emergency department the patient had labs and imaging which I independently reviewed. She did have a CT scan of the abdomen and pelvis that showed cholelithiasis with evidence of acute cholecystitis as the gallbladder appeared distended. It is nowhere the mention that one of the gallstones it was located in the region of the gallbladder neck. Mild amount of pericholecystic fluid was noted as well. Labs include a CBC were white blood cell count was normal. Her hemoglobin and hematocrit, along with her platelet count were also normal. Coagulation studies were noted to be normal. Chemistry profile showed sodium, potassium, BUN, and creatinine were normal. Her LFTs including her total bilirubin, AST, ALT, alkaline phosphatase, and lipase were nonelevated. Urinalysis was not indicative of infection. A EKG showed normal sinus rhythm without changes indicative of ischemia. A chest x-ray was performed that showed no evidence of pleural effusion or pneumonia. The patient notes that she leads a fairly active lifestyle when she is feeling well. She feels as though she could easily walk a mile on a flat surface without chest pain or shortness of breath and she can also go up a flight of s teps without any chest pain. She notes that she is a lifetime non-smoker and does not have a known family history of coronary artery disease. She does report that she is treated for hypertension as well as GERD but denies any additional medical problems. In the emergency department the patient was treated with some intravenous fluids along with Zofran and Toradol and her pain had improved but she continues to have some pain in the right upper quadrant. At the time of my interview she was resting in bed in no distress. Discharge Data Consultations 11/22/21 00:45 ED Decision to Admit Stat Procedures Performed Operation Date: 11/22/21 11:00 Actual Procedures p Laparoscopic Cholecystectomy - Kulwinder Mtz DO, FACS Hospital Course (1) Acute calculous cholecystitis: This patient presented to the emergency department on 11/21/2021 secondary to abdominal pain in the right upper quadrant. Patient underwent labs and imaging which were consistent with acute cholecystitis. Patient was admitted to hospital placed on appropriate antibiotics. On 12-12 she was taken the operating room where she underwent a laparoscopic cholecystectomy docked by Dr. Mtz. Her postoperative course was uneventful and she was discharged home the same day as her surgery. The patient was instructed on appropriate wound care, diet, and activity. She was instructed to follow-up with Dr. Mtz in the office in approximate 1 to 2 weeks. Coding Level of Care Code None Diagnoses Acute calculous cholecystitis K80.00
== END 2021-11-22 18:46 | disposition home or self-care (01) ==
LOC: ED 22:32 → 3W 11-22 00:58 → INTOOBSV 11-22 00:58 → 3W 11-22 02:16
DX: I10 Essential (primary) hypertension; K80.12 Calculus of gallbladder with acute and chronic cholecystitis without obstruction; Z79.899 Other long term (current) drug therapy; K21.9 Gastro-esophageal reflux disease without esophagitis

== ENCOUNTER 2023-05-09 07:37 | Observation (INO) ==
--- NOTE | 2023-04-21 12:19 | PAT Medication Instructions ---
Medication Instructions Date of Service April 21, 2023 Home Medications Medication Instructions Recorded acetaminophen 325 mg capsule 650 mg (2 x 325 mg) PO Q6H PRN 11/22/21 fever or pain #30 caps valacyclovir 500 mg tablet 500 mg PO DAILY PRN ... #30 tabs 05/10/22 gabapentin 100 mg capsule 100 mg PO TID #90 caps 04/11/23 tramadol 50 mg tablet 50 mg PO Q6H PRN pain #60 tabs 04/18/23 cyclobenzaprine 10 mg tablet See Rx Instructions .Route 04/19/23 .COMPLEX #20 tabs acetaminophen 325 mg capsule 650 mg (2 x 325 mg) PO Q6H PRN fever or pain valacyclovir 500 mg tablet 500 mg PO DAILY PRN gabapentin 100 mg capsule 100 mg PO TID tramadol 50 mg tablet 50 mg PO Q6H PRN pain cyclobenzaprine 10 mg tablet See Rx Instructions .Route .COMPLEX estradiol 0.5 mg tablet 0.5 mg PO QAM famotidine 20 mg tablet (Pepcid) 20 mg PO HS PRN Heartburn omeprazole 40 mg capsule,delayed release 40 mg PO Q2D oxybutynin chloride 10 mg tablet,extended release 24 hr 10 mg PO QAM triamterene 37.5 mg-hydrochlorothiazide 25 mg capsule 1 cap PO QAM Continue as directed valacyclovir 500 mg tablet 500 mg PO DAILY PRN (if needed) omeprazole 40 mg capsule,delayed release 40 mg PO Q2D ASK your surgeon for instructions estradiol 0.5 mg tablet 0.5 mg PO QAM DO NOT take the morning of surgery oxybutynin chloride 10 mg tablet,extended release 24 hr 10 mg PO QAM triamterene 37.5 mg-hydrochlorothiazide 25 mg capsule 1 cap PO QAM Take morning of surgery With a small sip of water, OTHERWISE NOTHING TO EAT OR DRINK AFTER MIDNIGHT: acetaminophen 325 mg capsule 650 mg (2 x 325 mg) PO Q6H PRN fever or pain (if needed) gabapentin 100 mg capsule 100 mg PO TID tramadol 50 mg tablet 50 mg PO Q6H PRN pain (if needed) cyclobenzaprine 10 mg tablet See Rx Instructions .Route .COMPLEX (if needed) Take evening before surgery acetaminophen 325 mg capsule 650 mg (2 x 325 mg) PO Q6H PRN fever or pain (if needed) gabapentin 100 mg capsule 100 mg PO TID tramadol 50 mg tablet 50 mg PO Q6H PRN pain (if needed) cyclobenzaprine 10 mg tablet See Rx Instructions .Route .COMPLEX (if needed) famotidine 20 mg tablet (Pepcid) 20 mg PO HS PRN Heartburn (if needed) Other Notes If you have any questions please call us at [phone] or [phone] or [phone] or [phone]
--- NOTE | 2023-04-25 11:46 | Anesthesiology Consultation ---
Date of Service April 25, 2023 Assessment & Plan (1) Encounter for pre-operative examination: - Infectious disease screening: Per assessment on 04/25/23: No known infectious disease contacts or current infectious disease symptoms. No noted recent Covid positive test result. - S/P Laparoscopic Cholecystectomy (11/22/21): Grade 2 view, MAC#3, ETT 7.5 at [facility] - PCP visit (04/11/23): "Patient here for annual wellness exam. Pap smear no longer indicated due to hysterectomy for non cancerous reasons. Mammogram done 03/24/23. Screening colonoscopy done 2016 and overdue in 2021. Recommend yearly influenza vaccine and tetanus vaccine q10 yrs and shingles vaccine and covid 19 vaccine. Patient educated on importance of healthy lifestyle, sunscreen use, calcium in diet, and routine breast exams. Patient to return for cpe in 1 year or sooner if needed.. Pt with bp that is at goal and stable. no changes to medication. check bmp. Recheck in 1 yr along with bmp.. Pt undergoing w/u for cervical radiculopathy by [facility]. Pt with uncontrolled pain. As pt not tolerating pregabalin, will switch pt to gabapentin at low dose. If unable to tolerate during the day, ok to take at bedtime. pt advised that dose of gabapentin can be increased in 2 wks. f/u prn" - PCP addendum (04/25/23): "Preop evaluation: Received request from Dr. Downey for a preoperative evaluation prior to anterior cervical discetomy and fusion C4 to C6 with tentative date of 05/09/23. . Patients history was reviewed. The patient was examined. The preoperative labs were reviewed. The patients EKG was also reviewed. The patient was found to be at acceptable cardiopulmonary risk for the planned procedure and is okay to proceed as scheduled." Chart Review Chart Review: Acceptable Risk for Surgery and Patient seen in Pre Admission Testing Teaching & Discussion Pre-Anesthesia Teaching/Discussion Notes: Instructed NPO after midnight before surgery,except medications with 15 cc of water. Medication instructions provided according to the PAT guidelines. History Surgery Operation Date: 05/09/23 14:25 Proposed Procedures p Anterior Cervical Discectomy Fusion C4-C6 With Spinal Cord Monitoring - Donte Downey, DO Height/Weight Height: 5 ft 3.25 in Weight: 70.7 kg Allergies Allergy/AdvReac Type Severity Reaction Status Date / Time No Known Drug Allergies Allergy NKDA Verified 04/20/23 11:20 Medications Home Medications Medication Instructions Recorded Confirmed Last Taken acetaminophen 325 mg capsule 650 mg (2 x 325 mg) PO Q6H PRN 11/22/21 04/20/23 Unknown fever or pain #30 caps valacyclovir 500 mg tablet 500 mg PO DAILY PRN ... #30 tabs 05/10/22 04/20/23 Unknown gabapentin 100 mg capsule 100 mg PO TID #90 caps 04/11/23 04/20/23 Unknown tramadol 50 mg tablet 50 mg PO Q6H PRN pain #60 tabs 04/18/23 04/20/23 Unknown cyclobenzaprine 10 mg tablet See Rx Instructions .Route 04/19/23 04/20/23 Unknown .COMPLEX #20 tabs estradiol 0.5 mg tablet 0.5 mg PO QAM 04/20/23 04/20/23 Unknown famotidine 20 mg tablet (Pepcid) 20 mg PO HS PRN Heartburn 04/20/23 04/20/23 Unknown omeprazole 40 mg capsule,delayed 40 mg PO Q2D 04/20/23 04/20/23 Unknown release oxybutynin chloride 10 mg 10 mg PO QAM 04/20/23 04/20/23 Unknown tablet,extended release 24 hr triamterene 37.5 1 cap PO QAM 04/20/23 04/20/23 Unknown mg-hydrochlorothiazide 25 mg capsule Past Medical History Medical History Cervical radiculopathy Chronic neck pain Diverticulosis Heartburn Hx of colonic polyps Hypertension Paresthesia of right upper extremity "burning sensation" r/t cervical stenosis Exercise / Class Metabolic Activity II 4-5 Yardwork/Stairs/Walk up hill (one FS: no CP, no SOB) Past Family History Family History Brother Diabetes History of kidney cancer Hypertension Grandmother (Maternal) Diabetes Mother Hypertension Father Hypertension Uncle Myocardial infarction Sister Pulmonary fibrosis Daughter No problems noted. Son No problems noted. Other No family history of adverse response to anesthesia Denies family history of Colon cancer Ovarian cancer Prostate cancer Breast cancer Past Surgical History Surgical History H/O: hysterectomy (2004) total hysterectomy + RSO History of colonoscopy History of esophagogastroduodenoscopy (EGD) History of surgery on arm Right arm reconstruction (after trauma/fall through a window) Hx laparoscopic cholecystectomy Laparoscopic Cholecystectomy (11/22/21): Grade 2 view, MAC#3, ETT 7.5 at [facility] S/P epidural steroid injection Past Anesthesia History No Hx of Anesthesia Complications and No Family Hx of Anesthesia Complications History of PONV No Hx of PONV and Hx of Motion Sickness (occasional) Social History Smoking Status: Never smoker Do You Dip or Chew Tobacco: No Hx Alcohol Use: Yes Alcohol type: wine alcohol intake frequency: a few times a month Hx Substance Use: No substance use type: does not use Review of Systems Patient denies chest pain, shortness of breath, dyspnea on exertion, fever, chills, cough, wheezing, palpitations. Physical Exam Vital Signs BP 118/76 P 64 TEMP 97.5 SP02 97%RA RESP 18 Physical Decreased cervical extension range of motion. Full TMJ range of motion. TMD 3 finger breaths Mallampati Score 2 Dentition: missing sides/molars, + upper front (permanent "screwed in"/tooth repair) Lungs: clear throughout to auscultation Cardiac: regular rate and rhythm, no murmurs noted Spine: normal Carotid arteries: negative bruit Extremities: no LE edema Lab Results Anesthesia Preop Results Results Anesthesia Widget: WBC 4.91 K/ul (4.8-10.8) 04/25/23 Hgb 12.8 g/dl (12.0-16.0) 04/25/23 Hct 36.9 % (37.0-47.0) L 04/25/23 Plt 261 K/uL (130-400) 04/25/23 Na 135 mmol/L (136-145) L 04/25/23 K 3.8 mmol/L (3.5-5.1) 04/25/23 Cl 99 mmol/L (98-107) 04/25/23 CO2 27 mmol/L (21-32) 04/25/23 BUN 12 mg/dl (6-23) 04/25/23 Creat 0.64 mg/dl (0.6-1.2) 04/25/23 Glucose Level 87 mg/dl (70-99(Fasting)) 04/25/23 PT 10.7 Seconds (9.0-12.0) 04/25/23 PTT 27 Seconds (21-31) 04/25/23 INR 1.0 (0.9-1.1) 04/25/23 Urine Color Yellow 04/25/23 Urine Appearance Clear (Clear) 04/25/23 Urine pH 7.0 (4.5-7.5) 04/25/23 Urine Specific Creole 1.004 (1.000-1.030) 04/25/23 Urine Protein Negative (Negative) 04/25/23 Urine Glucose (UA) Negative (Negative) 04/25/23 Urine Ketones Negative (Negative) 04/25/23 Urine Blood Negative (Negative) 04/25/23 Urine Nitrite Negative (Negative) 04/25/23 Urine Bilirubin Negative (Negative) 04/25/23 Urine Urobilinogen Negative (Negative) 04/25/23 Urine Leukocyte Esterase Negative (Negative) 04/25/23 Blood Type O Positive 04/25/23 Antibody Screen NEGATIVE 04/25/23 Testing Electrocardiogram Date: 04/25/23 NSR at 69bpm. NS TWA. *Prolonged QT* No significant change compared to 11/21/2021 per pe teacher comparison. Chest X-Ray Date: 04/25/23 FINDINGS: Cardiomediastinal and hilar silhouettes are within normal limits. No pneumothorax, pleural effusion, airspace consolidation or overt pulmonary edema. Bones of the chest appear grossly intact. Cholecystectomy. Upper abdominal small bowel air-fluid levels are likely physiologic. Mild right hemidiaphragmatic elevation. IMPRESSION: No acute process.
[~2023-05-09 07:37] MED LIST changes: +DEXAMETHASONE SOD INJ 4 MG/ML VIAL ONE; -ESTR0.5T3 PO; +GLYCOPYRROLATE 0.2 MG/ML VIAL ONE; +LIDOCAINE 2% 2 ML VIAL/AMP(20MG/ML) INFIL ONE; +MIDAZOLAM HCL 1 MG/ML 2ML VIAL ONE; -MULT-506 PO; +ONDANSETRON INJ 2 MG/ML 2 ML VIAL ONE; -PRLSR20 PO; +PROPOFOL IV EMULSION 10 MG/ML 20 ML VIAL IV ONE; +ROCURONIUM BROMIDE 10 MG/ML 5 ML VIAL IV ONE; +SUGAMMADEX SODIUM 200 MG/2 ML VIAL IV ONE; -TRIA37.5 PO; +fentaNYL citrate PF 100 MCG/2 ML VIAL ONE
[2023-05-09] MEDS: LR 15ML/HR IV SCH (08:15)
[2023-05-09] MEDS: LR 60ML/HR IV SCH (08:17)
[2023-05-09] MEDS: GABAPENTIN 600 MG DOSE PO SCH (08:17)
[2023-05-09] MEDS: ACETAMINOPHEN 500 MG TAB PO SCH (08:17)
[2023-05-09] MEDS: CeleBREX 200 MG CAP PO SCH (08:17)
[2023-05-09] MEDS ORDERED: PROMETHAZINE HCL 6.25 MG in SODIUM CHLORIDE 0.9% 50 ML IV PRN (08:55)
[2023-05-09] MEDS ORDERED: ePHEDrine sulfate 50 MG/ML AMP IV PRN (08:55)
[2023-05-09] MEDS ORDERED: ONDANSETRON INJ 2 MG/ML 2 ML VIAL IV PRN ×2 (08:55→13:25)
[2023-05-09] MEDS ORDERED: FLUMAZENIL 0.1 MG/1 ML 10 ML VIAL IV PRN (08:55)
[2023-05-09] MEDS ORDERED: ATROPINE SULFATE 0.1 MG/ML 10ML SYR IV PRN (08:55)
[2023-05-09] MEDS ORDERED: NALOXONE HCL 0.4 MG/1 ML VIAL/CARP IV PRN ×2 (08:55→13:25)
--- NOTE | 2023-05-09 09:49 | History & Physical Bridge Note ---
Date of Service May 09, 2023 History & Physical Bridge Note I have examined the patient, reviewed the History & Physical and in the interval since the performance of the History & Physical I have noted the following changes of clinical significance: no changes noted
--- NOTE | 2023-05-09 09:51 | History & Physical Report ---
Date of Service May 09, 2023 Assessment & Plan (1) Cervical stenosis of spinal canal: Plan: Anterior cervical discectomy and fusion C4-C6 History of Present Illness Chief Complaint: Neck and arm pain Primary Care Provider: Pili Andrews MD This is a 62-year-old female presents chronic persistent neck and arm pain failing course of nonoperative care she is here for surgical intervention. Allergies Allergy/AdvReac Type Severity Reaction Status Date / Time No Known Drug Allergies Allergy NKDA Verified 05/09/23 08:07 Home Medications Medication Instructions Recorded Confirmed Type acetaminophen 325 mg capsule 650 mg (2 x 325 mg) PO Q6H PRN 11/22/21 05/09/23 Rx fever or pain #30 caps valacyclovir 500 mg tablet 500 mg PO DAILY PRN ... #30 tabs 05/10/22 05/09/23 Rx gabapentin 100 mg capsule 100 mg PO TID #90 caps 04/11/23 05/09/23 Rx estradiol 0.5 mg tablet 0.5 mg PO QAM 04/20/23 05/09/23 History famotidine 20 mg tablet (Pepcid) 20 mg PO HS PRN Heartburn 04/20/23 05/09/23 History omeprazole 40 mg capsule,delayed 40 mg PO Q2D 04/20/23 05/09/23 History release oxybutynin chloride 10 mg 10 mg PO QAM 04/20/23 05/09/23 History tablet,extended release 24 hr triamterene 37.5 1 cap PO QAM 04/20/23 05/09/23 History mg-hydrochlorothiazide 25 mg capsule cyclobenzaprine 10 mg tablet See Rx Instructions .Route 05/05/23 05/09/23 Rx .COMPLEX #20 tabs tramadol 50 mg tablet 50 mg PO Q6H PRN pain #60 tabs 05/05/23 05/09/23 Rx Past Med/Surg History Medical History Cervical radiculopathy Chronic neck pain Diverticulosis Heartburn Hx of colonic polyps Hypertension Paresthesia of right upper extremity "burning sensation" r/t cervical stenosis Surgical History H/O: hysterectomy (2004) total hysterectomy + RSO History of colonoscopy History of esophagogastroduodenoscopy (EGD) History of surgery on arm Right arm reconstruction (after trauma/fall through a window) Hx laparoscopic cholecystectomy Laparoscopic Cholecystectomy (11/22/21): Grade 2 view, MAC#3, ETT 7.5 at [facility] S/P epidural steroid injection Family History Brother Diabetes History of kidney cancer Hypertension Grandmother (Maternal) Diabetes Mother Hypertension Father Hypertension Uncle Myocardial infarction Sister Pulmonary fibrosis Daughter No problems noted. Son No problems noted. Other No family history of adverse response to anesthesia Denies family history of Colon cancer Ovarian cancer Prostate cancer Breast cancer Social History Smoking Status: Never smoker Second Hand Exposure: No; Do You Dip or Chew Tobacco: No; Tobacco Cessation Education Requested by Patient: No Hx Alcohol Use: Yes Alcohol type: wine Alcohol Intake Frequency: Monthly or Less Hx Substance Use: No Preferred Language: Swiss Communication Ability: Effective Visual Impairment: No Limitations Hearing Ability: Normal Health Information Technologist Required: No Beliefs That Will Affect Care: None marital status: Single Current Living Situation: Significant Other Current Living Situation Comment: lives with fiance current occupational status: employed 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 [employer] Other Information That Helps Us Care for You: No Feels Safe at Home: Yes Safety Concerns: Feels Safe At This Time Childhood Exposure to Second-Hand Smoke: Yes Diet: regular Dental Care, Regularly: Yes Physical Activity Frequency: Does not Exercise Seatbelt Use: always Sunscreen Use: Yes Assistive Devices: Glasses Assistive Devices Comment: neck brace at night prn; permanent caps top 2 front teeth Physical Exam Physical Exam: Patient is alert and oriented Heart regular rhythm Lungs clear Results & Data Results & Data Vital Signs (Past 12 Hours) Vital Signs Temp Pulse Resp BP Pulse Ox O2 Del Method 05/09/23 08:01 36.5 C 70 20 147/97 H 100 Room Air
[2023-05-09] MEDS: ceFAZolin 2000MG 2,000 MG/15 ML SYR IV SCH (10:11)
[2023-05-09] MEDS ORDERED: fentaNYL citrate PF 100 MCG/2 ML VIAL ONE (10:50)
[2023-05-09] MEDS: FLOSEAL HEMOSTATIC MATRIX 10ML TOP ONE (11:24)
[2023-05-09] MEDS: ceFAZolin 330 MG/ML 1 GM VIAL ONE (11:25)
--- NOTE | 2023-05-09 11:36 | Operative Report ---
Post Operative Report Pre & Post Diagnosis Operation Date: 05/09/23 09:35 Pre-Op Diagnosis: Cervical spinal stenosis with radiculopathy Post-Op Diagnosis: Same I identified the patient and participated in the time-out.: Yes Procedure Operation Date: 05/09/23 09:35 Actual Procedures #1 anterior cervical discectomy with bilateral foraminotomies C4-C5 C5-C6. #2 anterior cervical thesis C4-C5 C5-C6. #3 placement of Spira 7 mm cage filled with I factor at C4-C5 C5-C6. #4 application of K2 M plate and screws from C4- C6. Surgeon Donte Downey, Rn Diabetes Camila Gamino Estimated Blood Loss 10 Findings Consistent with Post-Op Diagnosis Specimens None Indications This is a 62-year-old female who presents above-mentioned diagnosis after failed course of nonoperative care is here for surgical invention. Description of Procedure Patient was met with identified informed consent obtained. Patient was then taken to the operative suite underwent patient placed in spine position jacks table with head Rogers head order. All bony prominences well-padded eyes inspected to ensure no external pressure placed upon the. This point the anterior cervical spine was prepped and draped in a sterile fashion. With the assistance of fluoroscopy defy the C5 vertebral body and a transverse incision was placed along the right anterior aspect of the cervical spine overlying his region. Blunt dissection with the assistance of bipolar electrocautery to form down to and exposing the anterior cervical spine from C4-C6. Self-retaining retractors placed. Then formed a complete discectomy of C4-C5 out to the uncovertebral's bilaterally. Roosevelt distracting pins utilized to assist in visualization. Removed all posterior annular fibers longitudinal ligament bilateral foraminotomies performed endplates burred to subcortical bleeding bone and a 7 mm Spira cage filled with I factor tapped in position. Then proceeded to C 5 C6. Again complete discectomy performed out to the uncovertebral's bilaterally. Roosevelt distractor pins again utilized. Removed all posterior annular fibers longitudinal ligament bilateral foraminotomies performed and again the submillimeter Spira cage filled with I factor tapped in position. Distracting apparatus was removed and all anterior osteophytes burred to a smooth cortical surface. A K2 M plate and screws then applied with the assistance of fluoroscopy. The incision was then copiously irrigated explored to ensure no damage to surrounding structures remaining bleeding. 10 round SATHISH drain inserted. The incision was then closed with 2 Vicryl in the fascia and 4 Monocryl for final closure. Steri-Strips sterile dressing placed. Patient waken taken to PACU in stable condition. Please note spinal cord monitoring was utilized at the procedure no changes noted. Lastly Camila Gamino was present at the entire surgery and all the patient positioning complex portion of the surgery and final skin closure. I attest to the content of the Intraoperative Record and any orders documented therein. Any exceptions are noted below.
[2023-05-09] MEDS: fentaNYL citrate PF 100 MCG/2 ML VIAL IV PRN (11:47)
[2023-05-09] MEDS ORDERED: ROCURONIUM BROMIDE 10 MG/ML 5 ML VIAL IV ONE (12:32)
[2023-05-09] MEDS: LABETALOL HCL IV 5 MG/ML 20ML IV PRN (12:38)
[2023-05-09] MEDS: HYDROmorphone INJ 1 MG/ML SYRINGE IV PRN (12:45)
--- NOTE | 2023-05-09 13:15 | Anesthesiology Progress Note ---
Date of Service May 09, 2023 Anesthesia Post Procedure Vital Signs Vital Signs: Temp Pulse Pulse Pulse Resp BP BP 05/09/23 13:10 36.4 C L 63 17 152/91 H 05/09/23 13:00 36.4 C L 60 19 144/85 H 05/09/23 12:55 67 142/119 H 05/09/23 12:50 67 17 142/119 H 05/09/23 12:40 66 19 160/101 H 05/09/23 12:38 65 156/100 H 05/09/23 12:30 36.4 C L 68 17 150/102 H 05/09/23 12:20 62 18 144/92 H 05/09/23 12:10 64 13 163/100 H 05/09/23 12:00 67 16 163/96 H 05/09/23 11:50 75 21 164/103 H 05/09/23 11:43 36.1 C L 86 18 170/108 H 05/09/23 08:01 36.5 C 70 20 147/97 H Pulse Ox O2 Del Method O2 Flow Rate 05/09/23 13:10 96 Room Air 0 05/09/23 13:00 94 Room Air 0 05/09/23 12:55 05/09/23 12:50 97 Room Air 0 05/09/23 12:40 98 Room Air 0 05/09/23 12:38 05/09/23 12:30 95 Room Air 0 05/09/23 12:20 98 Oxymask 3 05/09/23 12:10 100 Oxymask 3 05/09/23 12:00 100 Oxymask 3 05/09/23 11:50 100 Oxymask 5 05/09/23 11:43 99 Oxymask 7 05/09/23 08:01 100 Room Air Pain Intensity Lower Neck: Pain Intensity: 6 Transfer of Care Handoff Completed per policy Notes Mental Status: alert / awake / arousable Patient Amnestic to Procedure: Yes Nausea / Vomiting: adequately controlled Pain: adequately controlled Airway Patency, RR, SpO2: stable & adequate BP & HR: stable & adequate Hydration State: stable & adequate Anesthetic Complications: no major complications apparent
[2023-05-09] MEDS ORDERED: PROMETHAZINE HCL 12.5 MG in SODIUM CHLORIDE 0.9% 50 ML IV PRN (13:25)
[2023-05-09] MEDS: LACTATED RINGER'S 1,000 ML IV SCH (13:25)
[2023-05-09] MEDS ORDERED: ACETAMINOPHEN 1,000 MG/100 ML VIAL IV PRN (13:25)
[2023-05-09] MEDS ORDERED: METOCLOPRAMIDE HCL INJ 5 MG/ML 2 ML VIAL IV PRN (13:25)
[2023-05-09] MEDS ORDERED: HYDROmorphone INJ 0.5 MG/0.5 ML SYR IV PRN (13:25)
[2023-05-09] MEDS ORDERED: MAGNESIUM HYDROXIDE SUSP 30 ML UDC PO PRN (13:25)
[2023-05-09] MEDS ORDERED: ALUMINUM/MAGNESIUM SUSP 30 ML UDC PO PRN (13:25)
[2023-05-09] MEDS ORDERED: traMADol HCL 50 MG TABLET PO PRN (13:25)
[2023-05-09] MEDS ORDERED: FAMOTIDINE 20 MG TAB PO PRN (13:25)
[2023-05-09] MEDS ORDERED: SOD PHOSPHATE/SOD BIPHOSPHATE ENEMA 132 ML BTL PR PRN (13:25)
[2023-05-09] MEDS ORDERED: diphenhydrAMINE Capsule 25 MG CAP PO PRN (13:25)
[2023-05-09] MEDS ORDERED: ONDANSETRON 4 MG OD TAB PO PRN (13:25)
[2023-05-09] MEDS ORDERED: DO NOT ADMINISTER PNEUMOCOCCAL VACCINE PRN (13:25)
[2023-05-09] MEDS ORDERED: LORazepam 0.5 MG TAB PO PRN (13:25)
[2023-05-09] MEDS ORDERED: hydrOXYzine HCl 25 MG TAB PO PRN (13:25)
[2023-05-09] MEDS ORDERED: DO NOT ADMINISTER FLU VACCINE PRN (13:25)
[2023-05-09] MEDS ORDERED: LORazepam 0.5 MG in SYRINGE 0.25 ML IV PRN (13:25)
[2023-05-09] MEDS ORDERED: dexAMETHasone 8 MG in SYRINGE 0 ML IV PRN (13:25)
[2023-05-09] MEDS ORDERED: bisacodyL 10 MG SUPP PR PRN (13:25)
[2023-05-09] MEDS ORDERED: HYDROmorphone INJ 1 MG/ML SYRINGE IV PRN (13:25)
[2023-05-09] MEDS ORDERED: RACEPINEPHRINE 2.25% NEBU SOLN 0.5 ML VIAL INH PRN (13:25)
[2023-05-09] MEDS: oxyCODONE HCL IR 5 MG TAB (IMMEDIATE RELEASE) PO PRN (14:29)
[2023-05-09] MEDS: GABAPENTIN 100 MG CAP PO SCH (14:29)
--- NOTE | 2023-05-09 14:54 | Fluoroscopy Report ---
INTRAOPERATIVE RADIOGRAPHS CLINICAL HISTORY: Cervical spinal fusion. Fluoro time: 13 seconds Ka,r: 1.03 mGy FINDINGS: 2 spot fluoroscopic views of the cervical spine are presented. There has been discectomy at C4-C5 and C5-C6 with anterior fusion at C4-C6. The orthopedic hardware appears intact. An endotrache al tube is in place. IMPRESSION: Intraoperative images of the cervical spine as above. Electronically signed by: Gonzales Nunes M.D. 05/09/2023 2:53 PM
[2023-05-09] MEDS: ceFAZolin 1000MG 1,000 MG/7.5 ML SYR IV SCH (18:36)
[2023-05-09] MEDS: ACETAMINOPHEN 500 MG TAB PO PRN (20:47)
[2023-05-09] MEDS: DOCUSATE SODIUM/SENNA 50/8.6MG TAB PO SCH (21:46)
[2023-05-10] MEDS: POLYETHYLENE (MIRALAX) 17 GM PACK PO SCH (06:14)
[2023-05-10] MEDS: dexAMETHasone 6 MG in SYRINGE 0 ML IV SCH (08:21)
[2023-05-10] MEDS: PANTOprazole 40 MG TAB PO SCH (08:21)
[2023-05-10] MEDS: OXYBUTYNIN CHLORIDE XL 5 MG TABCR PO SCH (08:21)
[2023-05-10] MEDS: TRIAMTERENE/HCTZ 37.5/25MG CAP PO SCH (08:21)
--- NOTE | 2023-05-10 08:35 | Hospitalist Consultation ---
Date of Consultation May 10, 2023 Assessment & Plan (1) Cervical stenosis of spinal canal: s/p #1 anterior cervical discectomy with bilateral foraminotomies C4-C5 C5-C6. #2 anterior cervical thesis C4-C5 C5-C6. #3 placement of Spira 7 mm cage filled with I factor at C4-C5 C5-C6. #4 application of K2 M plate and screws from C4- C6. with Dr Downey on 05/08 EBL 10cc tolerated liquid diet for breakfast, diet advance to regular for lunch Pain control, antiemetics, bowel regimen, DVT proph, dispo per primary service (2) Hypertension: (3) Heartburn: History of Present Illness Attending Physician: Donte Downey, Allergies Allergy/AdvReac Type Severity Reaction Status Date / Time No Known Drug Allergies Allergy NKDA Verified 05/09/23 08:07 Home Medications Medication Instructions Recorded Confirmed Type acetaminophen 325 mg capsule 650 mg (2 x 325 mg) PO Q6H PRN 11/22/21 05/09/23 Rx fever or pain #30 caps valacyclovir 500 mg tablet 500 mg PO DAILY PRN ... #30 tabs 05/10/22 05/09/23 Rx gabapentin 100 mg capsule 100 mg PO TID #90 caps 04/11/23 05/09/23 Rx estradiol 0.5 mg tablet 0.5 mg PO QAM 04/20/23 05/09/23 History famotidine 20 mg tablet (Pepcid) 20 mg PO HS PRN Heartburn 04/20/23 05/09/23 History omeprazole 40 mg capsule,delayed 40 mg PO Q2D 04/20/23 05/09/23 History release oxybutynin chloride 10 mg 10 mg PO QAM 04/20/23 05/09/23 History tablet,extended release 24 hr triamterene 37.5 1 cap PO QAM 04/20/23 05/09/23 History mg-hydrochlorothiazide 25 mg capsule cyclobenzaprine 10 mg tablet See Rx Instructions .Route 05/05/23 05/09/23 Rx .COMPLEX #20 tabs tramadol 50 mg tablet 50 mg PO Q6H PRN pain #60 tabs 05/05/23 05/09/23 Rx oxycodone 5 mg tablet 5 mg PO Q6H PRN pain #20 tabs 05/09/23 Rx tramadol 50 mg tablet 50 mg PO Q6H PRN pain, moderate 05/09/23 Rx #30 tabs Patient History Medical History Cervical radiculopathy Chronic neck pain Diverticulosis Heartburn Hx of colonic polyps Hypertension Paresthesia of right upper extremity "burning sensation" r/t cervical stenosis Surgical History H/O: hysterectomy (2004) total hysterectomy + RSO History of colonoscopy History of esophagogastroduodenoscopy (EGD) History of surgery on arm Right arm reconstruction (after trauma/fall through a window) Hx laparoscopic cholecystectomy Laparoscopic Cholecystectomy (11/22/21): Grade 2 view, MAC#3, ETT 7.5 at [facility] S/P epidural steroid injection Family History Brother Diabetes History of kidney cancer Hypertension Grandmother (Maternal) Diabetes Mother Hypertension Father Hypertension Uncle Myocardial infarction Sister Pulmonary fibrosis Daughter No problems noted. Son No problems noted. Other No family history of adverse response to anesthesia Denies family history of Colon cancer Ovarian cancer Prostate cancer Breast cancer Social History Smoking Status: Never smoker Second Hand Exposure: No; Do You Dip or Chew Tobacco: No; Tobacco Cessation Education Requested by Patient: No Hx Alcohol Use: Yes Alcohol type: wine Alcohol Intake Frequency: Monthly or Less Hx Substance Use: No Preferred Language: Nepalese Communication Ability: Effective Visual Impairment: No Limitations Hearing Ability: Normal Carpenter Streetcar Required: No Beliefs That Will Affect Care: None marital status: Single Current Living Situation: Significant Other Current Living Situation Comment: lives with fiance current occupational status: employed current occupation: [employer] at [employer] Other Information That Helps Us Care for You: No Feels Safe at Home: Yes Safety Concerns: Feels Safe At This Time Childhood Exposure to Second-Hand Smoke: Yes Diet: regular Dental Care, Regularly: Yes Physical Activity Frequency: Does not Exercise Seatbelt Use: always Sunscreen Use: Yes Assistive Devices: Glasses Assistive Devices Comment: neck brace at night prn; permanent caps top 2 front teeth Results & Data Results & Data Vital Signs (Past 12 Hours) Vital Signs Temp Pulse Resp BP Pulse Ox O2 Del Method 05/10/23 07:13 36.5 C 79 18 138/84 98 Room Air 05/10/23 07:02 75 16 99 Room Air 05/10/23 06:22 36.4 C L 72 16 134/81 97 Room Air 05/10/23 04:25 36.7 C 77 15 133/85 96 Room Air 05/10/23 02:40 82 17 97 Room Air 05/10/23 02:22 36.6 C 16 144/86 H 97 Room Air 05/10/23 00:26 36.7 C 78 16 127/82 98 Room Air 05/09/23 23:26 88 17 93 Room Air 05/09/23 22:25 36.4 C L 85 16 131/83 97 Room Air PG Care Time/CCT Total # of Minutes Spent Total Time Spent with Patient: Total time spent is greater than 50% in coordination of care (as documented) at patient's floor/unit and/or counseling patient: Coding Diagnoses Cervical stenosis of spinal canal M48.02 Hypertension I10 Heartburn R12
--- NOTE | 2023-05-10 09:22 | Discharge Summary ---
Date of Service May 10, 2023 Admission HPI Per Admitting Provider This is a 62-year-old female presents chronic persistent neck and arm pain failing course of nonoperative care she is here for surgical intervention. Principal Diagnosis Cervical spinal stenosis with radiculopathy Discharge Data Allergies Allergy/AdvReac Type Severity Reaction Status Date / Time No Known Drug Allergies Allergy NKDA Verified 05/09/23 08:07 Consultations 05/09/23 13:25 Consult Hospitalist Routine Procedures Performed Operation Date: 05/09/23 09:35 Actual Procedures p C4-C6 Anterior Cervical Discectomy Fusion with Spinal Cord Monitoring(Not Applicable) - Donte Downey DO Ordered Studies 05/09/23 09:35 FL cervical 2-3V Routine Hospital Course (1) Cervical stenosis of spinal canal: Patient underwent anterior cervical discectomy and fusion tolerated this well during the orthopedic floor postoperative. Postop day 1 she was swallowing well. No hoarseness. Arm symptoms markedly improved. Pain well-controlled. SATHISH drain decreasing appropriately. Simply discharged home. Discharge orders instructions from chart for further review. Total Time Total Time Spent Total Time Spent (In Minutes): 20 minutes Discharge Plan Discharge Items Patient Disposition: Home - Self-Care Reason For Visit: Cervical Disc Disease, Foraminal Stenosis of Cervi Discharge Diagnosis: Cervical spinal stenosis with radiculopathy Activity: As commented below Non-emergency contact: Primary Care Provider Call non-emergency contact if: you have any medication questions Follow-up/Referrals: Pili Andrews MD [Primary Care Provider] - Diet: Regular Addtl Attending Provider Instructions: ACTIVITY RECOMMENDATIONS: SELF CARE INSTRUCTIONS AFTER CERVICAL FUSIONS 1. No smoking. Smoking drastically decreases the chance of a solid fusion. 2. No bending, lifting more than 5 pounds, or twisting (roll like a log when turning in bed). 3. You may shower 3 days after surgery. Thoroughly dry wound. Do not soak in the tub. 4. Cervical collar: Must be worn at all times including sleeping. You may remove the brace only to bath, eat and if you are sitting in a recliner. 5. Please walk as much as you can for exercise. Gradually increase the distance that you walk as your endurance increases. SPECIAL CARE INSTRUCTIONS: VERY IMPORTANT TO READ AND REVIEW A. Do not take any anti-inflammatory medications (i.e. Indocin, Advil, Aspirin, Naprosyn, Aleve, Motrin, etc.) as these may inhibit the chance of a solid fusion. Tylenol is okay to take. B. Your surgical incision has been closed with a cosmetic suture under the skin that will dissolve in about 6 weeks. In 14 days, you can use a pair of clean scissors and cut the suture that is left outside of the skin at the ends of your incision. C. Complications are uncommon, but please contact us if you have any signs or symptoms of: 1. wound infection (fever higher than 102.5 degrees F, redness, separation of wound, drainage, or increasing pain from the incision) 2. blood clots in legs (pain, swelling, redness and warmth in legs) 3. urinary tract infection (fever higher than 102.5 degrees, burning upon urination or increased frequency of urination) 4. nerve problems (inability to walk on your toes or heels, numbness, loss of bowel or bladder control) 5. any other symptoms that concern you. D. Please call the office at if you have any concerns or questions about your operation or recovery. MANAGING PAIN AFTER SPINAL SURGERY 1. Narcotic medication is intended for short-term use and will be provided for surgical pain. Surgical pain usually lasts for a period of 4-6 weeks. Narcotic medication includes Percocet, Vicodin, Darvocet, Tylenol #3 or Lortab. 2. Longer-term pain is more appropriately treated with non-narcotic medication such as Tylenol ES. 3. Muscle spasm is not appropriately treated with narcotics. Muscle relaxers such as Soma, Flexeril or Skelaxin can be used along with Tylenol ES. 4. Remember that we all live with some "aches and pains". This is not unusual or uncommon after an injury or as we get older. 5. We will provide appropriate medication within the normal guidelines of their prescribed use. We will also be very cautious and aware of potential abuse and extended duration of patients' medication needs. 6. Please allow 2-3 days to process refills. Prescriptions will not be mailed but must be picked up at the office. FOLLOW UP VISIT: Keep your scheduled follow-up appointment. Any questions, please call the office at . Pending Studies at Discharge: No Stand-Alone Forms: [facility], Pain - Opioid Pain Management, Smoking Cessation Medications and DC Order Prescriptions: New tramadol 50 mg tablet 50 mg PO Q6H PRN (Reason: pain, moderate) Qty: 30 0RF oxycodone 5 mg tablet 5 mg PO Q6H PRN (Reason: pain) Qty: 20 0RF Continued valacyclovir 500 mg tablet 500 mg PO DAILY PRN (Reason: ...) Qty: 30 5RF cyclobenzaprine 10 mg tablet See Rx Instructions .ROUTE .COMPLEX Qty: 20 0RF Dose Instruction: TAKE ONE TABLET BY MOUTH THREE TIMES DAILY NEEDED FOR MUSCLE SPASM Rx Instructions: TAKE ONE TABLET BY MOUTH THREE TIMES DAILY NEEDED FOR MUSCLE SPASM tramadol 50 mg tablet 50 mg PO Q6H PRN (Reason: pain) Qty: 60 0RF gabapentin 100 mg capsule 100 mg PO TID Qty: 90 1RF acetaminophen 325 mg capsule 650 mg PO Q6H PRN (Reason: fever or pain) Qty: 30 0RF famotidine [Pepcid] 20 mg Tablet 20 mg PO HS PRN (Reason: Heartburn) oxybutynin chloride 10 mg tablet extended release 24hr 10 mg PO QAM omeprazole 40 mg capsule,delayed release(DR/EC) 40 mg PO Q2D triamterene-hydrochlorothiazid 37.5-25 mg capsule 1 cap PO QAM Rx Instructions: TAKE ONE CAPSULE BY MOUTH EVERY DAY estradiol 0.5 mg tablet 0.5 mg PO QAM Rx Instructions: TAKE ONE TABLET BY MOUTH EVERY DAY Discharge Orders: Discharge Order (Routine); Ordered 05/10/23 Ordered By: Donte Garland/Other Patient Handouts: Spinal Fusion: Cervical, Cervical Fusion Dc Admission Data Admit Date/Time: 05/09/23 11:39 Attending Provider: Donte Downey Admit Provider: Donte Downey Primary Care Provider: Pili Andrews Other Providers: Lito Robledo Other Interventions: Discharge Summary Assessment (RN) Last Done: 05/10/23 08:57
[2023-05-10 09:46] LABS: Hematocrit (blood only) 36.5 % (37.0-47.0); Hemoglobin 12.1 g/dl (12.0-16.0); Mean Corpuscular Hemoglobin 31.7 pg (25.0-34.0); Mean Corpuscular Hgb Conc 33.2 g/dL (32.0-36.0); Mean Corpuscular Volume 95.5 fL (80.0-100.0); Mean Platelet Volume 10.1 fL (9.4-12.4); Platelet Count 287 K/uL (130-400); RDW Coefficient of Variation 13.2 % (11.5-14.5); RDW Standard Deviation 46.2 fL (36.4-46.3); Red Blood Count 3.82 M/uL (4.20-5.40); White Blood Count 11.31 K/ul (4.8-10.8)
[2023-05-10 10:02] LABS: BUN Creatinine Ratio 11.9 (10-20); Calcium 9.1 mg/dl (8.6-10.3); Creatinine Clr Calc Pharmacy 82.8 ml/min; Est GFR (Non-African American) 94.9 ml/min; Potassium 3.7 mmol/L (3.5-5.1)
== END 2023-05-10 11:09 | disposition home or self-care (01) ==
LOC: 3E 07:37 → ASU 07:37